=== PATIENT | male | born 1965 | race Caucasian/White ===

== ENCOUNTER 2019-12-14 16:32 | Inpatient (IN) ==
[2019-12-14] MEDS ORDERED: ALBUTEROL/IPRATROPIUM 3 ML NEB RESP TX STA (17:11)
[2019-12-14] MEDS ORDERED: CLINDAMYCIN INJ 900 MG in PREMIX 1 EACH IV STA (17:11)
[2019-12-14] MEDS ORDERED: KETOROLAC 30 MG/1 ML VIAL IV STA (17:11)
[2019-12-14 18:05] LABS: Alanine Aminotransferase 21 U/L (16-61); Alkaline Phosphatase 57 U/L (45-117); Aspartate Amino Transferase 23 U/L (0-37); Bilirubin,Total < 0.39 MG/DL (0.2-1.0); Blood Urea Nitrogen 64 MG/DL (7-18); Calcium 7.7 MG/DL (8.5-10.1); Estimated Glom Filtration Rate 16 ML/MIN; Ferritin 238.2 ng/ml (26-388); Osmolality,Calculated 297.1 MOS/KG (273-304); Total Protein 6.3 G/DL (6.4-8.3)
[2019-12-14 18:08] LABS: Troponin I 0.181 NG/ML (0.00-0.045)
[2019-12-14 18:11] LABS: Glucose 37 MG/DL (74-106)
[2019-12-14] MEDS ORDERED: DEXTROSE 50% 25 GM/50 ML SYRINGE IV ONE ×4 (18:11→20:50)
[2019-12-14 18:12] LABS: INR 1.1; PT Patient Result 11.9 SECS (9.8-11.9); Partial Thromboplastin Time 29.7 SECS (23.9-33.8)
[2019-12-14] MEDS ORDERED: DEXTROSE 50% 25 GM/50 ML VIAL IV STA ×2 (18:12→20:45)
[2019-12-14 18:14] LABS: Basophils # 0.1 10*3/uL (0.0-0.2); Basophils % 0.6 % (0.0-0.8); Eosinophils # 1.2 10*3/uL (0.0-0.87); Eosinophils % 11.8 % (0.00-10.9); Hematocrit 37.1 VOL% (42.0-52.0); Hemoglobin 10.6 GM/DL (14.0-18.0); Immature Granulocytes % 0.3 %; Immature Granulocytes Absolute 0.03 #; Lymphocytes # 0.7 10*3/uL (1.4-4.0); Mean Corpuscular HGB Conc 28.6 GM/DL (32-36); Mean Corpuscular Volume 93.7 FL (87-102); Mean Platelet Volume 11.2 FL (9.6-12.0); Monocytes % 7.4 % (1.7-12.7); Neutrophils % 72.9 % (38.7-73.9); Platelet Count 124 T/CUMM (130-400); Red Blood Count 3.96 MC/CUMM (3.8-5.5); Red Cell Distribution Width 15.8 % (9.3-17.3); White Blood Count 9.8 T/CUMM (4-12)
[2019-12-14 18:37] LABS: Eosinophils 11 % (0-10); Lymphocytes 9 % (20-55); Platelet Estimate Adequate; Segmented Neutrophils 76 % (50-85); Total Cells Counted 100
[2019-12-14 19:09] LABS: Apearance,Urine CLEAR (Clear); Bilirubin,Urine Negative (Negative); Blood, Urine Small mg/dL (Negative); Glucose,Urine (UA) Negative (Negative); Hyaline Casts,Urine 4 /LPF (0-3); Ketones,Urine Negative (Negative); Nitrite,Urine Negative (Negative); Protein,Urine 30 MG/DL; RBC,Urine 3 /HPF (0-4); Urine Color Yellow (Yellow); Urine Specific Gravity 1.011 (1.001-1.035); Urine Urobilinogen < 2.0 EU/DL (0.2-1.0); WBC,Urine 6 /HPF (0-6)
[2019-12-14] MEDS ORDERED: CLINDAMYCIN INJ 600 MG in PREMIX 1 EACH IV STA (19:19)
[2019-12-14] MEDS ORDERED: DEXTROSE 5% NACL 0.45% 1,000 ML IV SCH (19:30)
[2019-12-14] MEDS ORDERED: LACTATED RINGERS 1,000 ML IV ONE (19:40)
[2019-12-14] MEDS ORDERED: hydrALAZINE 20 MG/1 ML VIAL IV PRN (19:56)
[2019-12-14] MEDS ORDERED: GLUCAGON 1 MG VIAL IM PRN ×3 (19:56→20:03)
[2019-12-14] MEDS ORDERED: DEXTROSE 50% 25 GM/50 ML VIAL IV PRN ×3 (19:56→20:03)
[2019-12-15] MEDS: INSULIN REGULAR 100 UNIT/ML SUBCUT SCH ×5 (01:40→21:08)
[2019-12-15] MEDS: CIPROFLOXACIN 0.3% OPH SOLN 2.5 ML BOTTLE LEFT EYE SCH ×6 (02:01→21:16)
[2019-12-15] MEDS: ENOXAPARIN 30 MG/0.3 ML SYRINGE SUBCUT SCH ×2 (02:01→21:09)
[2019-12-15 06:08] LABS: Calcium 7.6 MG/DL (8.5-10.1); Osmolality,Calculated 298.3 MOS/KG (273-304); Risk Ratio 2.39; Thyroid Stimulating Hormone 8.9 uIU/ml (0.358-3.74); VLDL CHOLESTEROL 15.6 MG/DL
[2019-12-15] MEDS: LEVOTHYROXINE 100 MCG TABLET PO SCH (06:08)
[2019-12-15] MEDS ORDERED: LACTATED RINGERS 1,000 ML IV SCH (07:30)
[2019-12-15] MEDS ORDERED: cefTRIAXone 1,000 MG in SYRINGE 1 EACH IV ONE (09:26)
[2019-12-15] MEDS ORDERED: cefTRIAXone 2,000 MG in SYRINGE 1 EACH IV ONE (09:30)
[2019-12-15] MEDS: allopurinoL 300 MG TABLET PO SCH (09:46)
[2019-12-15] MEDS: CALCIUM (CARBONATE)/VITAMIN D 600 MG-400 UNIT TABLET PO SCH (09:46)
[2019-12-15] MEDS: FERROUS SULFATE 325 MG TABLET PO SCH (09:46)
[2019-12-15] MEDS: ASPIRIN EC 81 MG TABLET PO SCH (13:13)
[2019-12-15 13:31] LABS: Troponin I 0.069 NG/ML (0.00-0.045)
[2019-12-15] MEDS: METOPROLOL TARTRATE 50 MG TABLET PO SCH (21:00)
[2019-12-15] MEDS: ATORVASTATIN 40 MG TABLET PO SCH (21:09)
[2019-12-16] MEDS: CIPROFLOXACIN 0.3% OPH SOLN 2.5 ML BOTTLE LEFT EYE SCH ×6 (03:31→21:34)
[2019-12-16] MEDS: LEVOTHYROXINE 100 MCG TABLET PO SCH (05:31)
[2019-12-16 06:16] LABS: Calcium 7.6 MG/DL (8.5-10.1); Osmolality,Calculated 296.5 MOS/KG (273-304)
[2019-12-16 06:24] LABS: Basophils % 0.4 % (0.0-0.8); Eosinophils # 0.8 10*3/uL (0.0-0.87); Eosinophils % 7.9 % (0.00-10.9); Hematocrit 34.6 VOL% (42.0-52.0); Lymphocytes # 0.4 10*3/uL (1.4-4.0); Lymphocytes % 3.7 % (21.2-54.2); Mean Corpuscular Volume 98.3 FL (87-102); Mean Platelet Volume 11.7 FL (9.6-12.0); Monocytes % 6.3 % (1.7-12.7); Neutrophils % 80.7 % (38.7-73.9); Platelet Count 108 T/CUMM (130-400); Red Blood Count 3.52 MC/CUMM (3.8-5.5); Red Cell Distribution Width 15.7 % (9.3-17.3); White Blood Count 9.5 T/CUMM (4-12)
[2019-12-16 06:35] LABS: Troponin I 0.065 NG/ML (0.00-0.045)
[2019-12-16 06:45] LABS: Hemoglobin 9.7 GM/DL (14.0-18.0)
[2019-12-16 06:58] LABS: Anisocytosis 1+; Band Neutrophils 2 % (0-10); Eosinophils 9 % (0-10); Hypochromasia 1+; Lymphocytes 2 % (20-55); Ovalocytes Slight; Segmented Neutrophils 86 % (50-85); Total Cells Counted 100
[2019-12-16 06:59] LABS: Platelet Estimate Decreased
[2019-12-16] MEDS: allopurinoL 300 MG TABLET PO SCH (09:20)
[2019-12-16] MEDS: FERROUS SULFATE 325 MG TABLET PO SCH (09:20)
[2019-12-16] MEDS: ASPIRIN EC 81 MG TABLET PO SCH (09:20)
[2019-12-16] MEDS: METOPROLOL TARTRATE 50 MG TABLET PO SCH ×2 (09:20→21:33)
[2019-12-16] MEDS: CALCIUM (CARBONATE)/VITAMIN D 600 MG-400 UNIT TABLET PO SCH (09:20)
[2019-12-16] MEDS: INSULIN REGULAR 100 UNIT/ML SUBCUT SCH ×4 (09:21→21:32)
[2019-12-16] MEDS: cefTRIAXone 2,000 MG in SYRINGE 1 EACH IV SCH (09:21)
[2019-12-16] MEDS: ATORVASTATIN 40 MG TABLET PO SCH (21:33)
[2019-12-16] MEDS: ENOXAPARIN 30 MG/0.3 ML SYRINGE SUBCUT SCH (21:34)
[2019-12-17] MEDS: CIPROFLOXACIN 0.3% OPH SOLN 2.5 ML BOTTLE LEFT EYE SCH ×6 (02:40→21:04)
[2019-12-17] MEDS: SODIUM CHLORIDE 0.9% 1,000 ML IV SCH ×3 (05:07→17:29)
[2019-12-17] MEDS: LEVOTHYROXINE 100 MCG TABLET PO SCH (06:01)
[2019-12-17 07:28] LABS: Calcium 7.6 MG/DL (8.5-10.1); Osmolality,Calculated 297.7 MOS/KG (273-304)
[2019-12-17 08:05] LABS: Basophils # 0.1 10*3/uL (0.0-0.2); Basophils % 0.5 % (0.0-0.8); Eosinophils # 0.7 10*3/uL (0.0-0.87); Eosinophils % 5.9 % (0.00-10.9); Immature Granulocytes % 0.6 %; Immature Granulocytes Absolute 0.07 #; Lymphocytes # 0.4 10*3/uL (1.4-4.0); Lymphocytes % 3.6 % (21.2-54.2); Mean Corpuscular HGB Conc 27.9 GM/DL (32-36); Mean Corpuscular Volume 96.6 FL (87-102); Monocytes % 4.7 % (1.7-12.7); Neutrophils % 84.7 % (38.7-73.9); Platelet Count 111 T/CUMM (130-400); Red Blood Count 3.52 MC/CUMM (3.8-5.5); Red Cell Distribution Width 15.7 % (9.3-17.3); White Blood Count 11.2 T/CUMM (4-12)
[2019-12-17 08:06] LABS: Hemoglobin 9.5 GM/DL (14.0-18.0)
[2019-12-17 08:12] LABS: Eosinophils 4 % (0-10); Lymphocytes 6 % (20-55); Platelet Estimate Decreased; Polychromasia 1+; Segmented Neutrophils 86 % (50-85); Total Cells Counted 100
[2019-12-17] MEDS: INSULIN REGULAR 100 UNIT/ML SUBCUT SCH ×4 (09:23→21:04)
[2019-12-17] MEDS: METOPROLOL TARTRATE 50 MG TABLET PO SCH ×2 (09:24→21:04)
[2019-12-17] MEDS: allopurinoL 300 MG TABLET PO SCH (09:24)
[2019-12-17] MEDS: CALCIUM (CARBONATE)/VITAMIN D 600 MG-400 UNIT TABLET PO SCH (09:24)
[2019-12-17] MEDS: ASPIRIN EC 81 MG TABLET PO SCH (09:24)
[2019-12-17] MEDS: cefTRIAXone 2,000 MG in SYRINGE 1 EACH IV SCH (09:25)
[2019-12-17] MEDS: FERROUS SULFATE 325 MG TABLET PO SCH (09:25)
[2019-12-17] MEDS: NYSTATIN 500,000 UNIT/5 ML UDCUP SWISH/SWAL SCH ×4 (09:26→21:03)
[2019-12-17] MEDS ORDERED: TUBERCULIN SKIN TEST 0.1 ML SYRINGE INTRADERM ONE (14:19)
[2019-12-17] MEDS: ENOXAPARIN 30 MG/0.3 ML SYRINGE SUBCUT SCH (21:03)
[2019-12-17] MEDS: ATORVASTATIN 40 MG TABLET PO SCH (21:04)
[2019-12-18] MEDS: CIPROFLOXACIN 0.3% OPH SOLN 2.5 ML BOTTLE LEFT EYE SCH ×6 (02:58→21:52)
[2019-12-18] MEDS: SODIUM CHLORIDE 0.9% 1,000 ML IV SCH ×4 (04:00→20:41)
[2019-12-18 05:32] LABS: Calcium 7.5 MG/DL (8.5-10.1); Osmolality,Calculated 302.5 MOS/KG (273-304)
[2019-12-18 05:37] LABS: Basophils % 0.3 % (0.0-0.8); Eosinophils # 0.6 10*3/uL (0.0-0.87); Eosinophils % 6.8 % (0.00-10.9); Immature Granulocytes % 0.6 %; Immature Granulocytes Absolute 0.05 #; Lymphocytes # 0.4 10*3/uL (1.4-4.0); Lymphocytes % 4.6 % (21.2-54.2); Mean Corpuscular HGB Conc 28.7 GM/DL (32-36); Mean Corpuscular Volume 93.8 FL (87-102); Mean Platelet Volume 11.7 FL (9.6-12.0); Monocytes % 5.5 % (1.7-12.7); NRBC # 0.02 10*3/uL; Neutrophils % 82.2 % (38.7-73.9); Platelet Count 110 T/CUMM (130-400); Red Cell Distribution Width 15.9 % (9.3-17.3); White Blood Count 8.9 T/CUMM (4-12)
[2019-12-18 05:40] LABS: Hemoglobin 8.6 GM/DL (14.0-18.0)
[2019-12-18] MEDS: LEVOTHYROXINE 100 MCG TABLET PO SCH (05:48)
[2019-12-18 05:55] LABS: Eosinophils 7 % (0-10); Hypochromasia 1+; Lymphocytes 8 % (20-55); Ovalocytes Slight; Platelet Estimate Decreased; Segmented Neutrophils 80 % (50-85); Total Cells Counted 100
[2019-12-18] MEDS: INSULIN REGULAR 100 UNIT/ML SUBCUT SCH ×4 (09:09→20:33)
[2019-12-18] MEDS: NYSTATIN 500,000 UNIT/5 ML UDCUP SWISH/SWAL SCH ×4 (09:52→20:33)
[2019-12-18] MEDS: ASPIRIN EC 81 MG TABLET PO SCH (09:52)
[2019-12-18] MEDS: CALCIUM (CARBONATE)/VITAMIN D 600 MG-400 UNIT TABLET PO SCH (09:52)
[2019-12-18] MEDS: cefTRIAXone 2,000 MG in SYRINGE 1 EACH IV SCH (09:52)
[2019-12-18] MEDS: FERROUS SULFATE 325 MG TABLET PO SCH (09:52)
[2019-12-18] MEDS: allopurinoL 300 MG TABLET PO SCH (09:52)
[2019-12-18] MEDS: METOPROLOL TARTRATE 50 MG TABLET PO SCH ×2 (09:52→20:33)
[2019-12-18 10:59] LABS: % Iron Saturation 26.9 % (18-50); Ferritin 236.6 ng/ml (26-388)
[2019-12-18] MEDS: ENOXAPARIN 30 MG/0.3 ML SYRINGE SUBCUT SCH (20:32)
[2019-12-18] MEDS: ATORVASTATIN 40 MG TABLET PO SCH (20:33)
[2019-12-18] MEDS: DESITIN 4OZ/NYSTATIN 15 GRAM MIXTURE PASTE TOP SCH (20:34)
[2019-12-18] MEDS: ONDANSETRON 4 MG/2 ML VIAL IV PRN (23:56)
[2019-12-19] MEDS: CIPROFLOXACIN 0.3% OPH SOLN 2.5 ML BOTTLE LEFT EYE SCH ×6 (03:21→21:35)
[2019-12-19] MEDS: LEVOTHYROXINE 100 MCG TABLET PO SCH (05:36)
[2019-12-19 05:58] LABS: Calcium 7.2 MG/DL (8.5-10.1); Osmolality,Calculated 320.1 MOS/KG (273-304)
[2019-12-19 06:06] LABS: Basophils # 0.1 10*3/uL (0.0-0.2); Basophils % 0.6 % (0.0-0.8); Eosinophils # 0.7 10*3/uL (0.0-0.87); Eosinophils % 7.9 % (0.00-10.9); Hematocrit 24.1 VOL% (42.0-52.0); Hemoglobin 6.9 GM/DL (14.0-18.0); Immature Granulocytes % 1.2 %; Immature Granulocytes Absolute 0.11 #; Lymphocytes # 0.7 10*3/uL (1.4-4.0); Lymphocytes % 7.4 % (21.2-54.2); Mean Corpuscular HGB Conc 28.6 GM/DL (32-36); Mean Corpuscular Volume 95.6 FL (87-102); Mean Platelet Volume 11.4 FL (9.6-12.0); Monocytes % 8.1 % (1.7-12.7); Neutrophils % 74.8 % (38.7-73.9); Platelet Count 104 T/CUMM (130-400); Red Blood Count 2.52 MC/CUMM (3.8-5.5); Red Cell Distribution Width 15.9 % (9.3-17.3); White Blood Count 9.4 T/CUMM (4-12)
[2019-12-19 06:09] LABS: Hypochromasia 1+; Ovalocytes Slight; Platelet Estimate Decreased
[2019-12-19] MEDS ORDERED: IRON SUCROSE 300 MG in SODIUM CHLORIDE 0.9% 100 ML IV ONE (06:33)
[2019-12-19] MEDS ORDERED: EPOETIN ALFA 2,000 UNIT/1 ML VIAL SUBCUT ONE (06:35)
[2019-12-19] MEDS: INSULIN REGULAR 100 UNIT/ML SUBCUT SCH ×4 (07:56→21:34)
[2019-12-19] MEDS: DESITIN 4OZ/NYSTATIN 15 GRAM MIXTURE PASTE TOP SCH ×2 (09:15→21:34)
[2019-12-19] MEDS: cefTRIAXone 2,000 MG in SYRINGE 1 EACH IV SCH (09:15)
[2019-12-19] MEDS: METOPROLOL TARTRATE 50 MG TABLET PO SCH ×2 (09:16→21:30)
[2019-12-19] MEDS: NYSTATIN 500,000 UNIT/5 ML UDCUP SWISH/SWAL SCH ×4 (09:16→21:29)
[2019-12-19] MEDS: FERROUS SULFATE 325 MG TABLET PO SCH ×3 (09:16→21:31)
[2019-12-19] MEDS: CALCIUM (CARBONATE)/VITAMIN D 600 MG-400 UNIT TABLET PO SCH (09:16)
[2019-12-19] MEDS: allopurinoL 300 MG TABLET PO SCH (09:16)
[2019-12-19] MEDS ORDERED: SODIUM CHLORIDE 0.9% 1,000 ML IV PRN (10:13)
[2019-12-19] MEDS: PANTOPRAZOLE 40 MG TABLET PO SCH (11:17)
[2019-12-19] MEDS: SODIUM CHLORIDE 23.4% CONC INJ 38.5 MEQ in STERILE WATER INJ 1,000 ML IV SCH (11:47)
[2019-12-19] MEDS ORDERED: FUROSEMIDE 40 MG/4 ML VIAL IV ONE (12:54)
[2019-12-19] MEDS: ATORVASTATIN 40 MG TABLET PO SCH (21:30)
[2019-12-20] MEDS: CIPROFLOXACIN 0.3% OPH SOLN 2.5 ML BOTTLE LEFT EYE SCH ×6 (03:05→22:33)
[2019-12-20] MEDS: SODIUM CHLORIDE 23.4% CONC INJ 38.5 MEQ in STERILE WATER INJ 1,000 ML IV SCH ×2 (05:11→13:28)
[2019-12-20] MEDS: LEVOTHYROXINE 100 MCG TABLET PO SCH (05:50)
[2019-12-20 07:34] LABS: Basophils # 0.1 10*3/uL (0.0-0.2); Basophils % 0.7 % (0.0-0.8); Eosinophils # 0.8 10*3/uL (0.0-0.87); Eosinophils % 7.3 % (0.00-10.9); Hematocrit 23.3 VOL% (42.0-52.0); Hemoglobin 6.7 GM/DL (14.0-18.0); Immature Granulocytes % 1.4 %; Immature Granulocytes Absolute 0.15 #; Lymphocytes # 0.5 10*3/uL (1.4-4.0); Lymphocytes % 4.9 % (21.2-54.2); Mean Corpuscular HGB Conc 28.8 GM/DL (32-36); Mean Corpuscular Volume 97.1 FL (87-102); Mean Platelet Volume 10.2 FL (9.6-12.0); Monocytes % 6.8 % (1.7-12.7); NRBC # 0.02 10*3/uL; Neutrophils % 78.9 % (38.7-73.9); Platelet Count 115 T/CUMM (130-400); Red Cell Distribution Width 16.1 % (9.3-17.3)
[2019-12-20] MEDS ORDERED: SODIUM CHLORIDE 0.9% 1,000 ML IV PRN (07:50)
[2019-12-20 07:55] LABS: Alanine Aminotransferase 14 U/L (16-61); Alkaline Phosphatase 44 U/L (45-117); Aspartate Amino Transferase 20 U/L (0-37); Bilirubin,Total < 0.39 MG/DL (0.2-1.0); Blood Urea Nitrogen 135 MG/DL (7-18); Calcium 7.6 MG/DL (8.5-10.1); Estimated Glom Filtration Rate 15 ML/MIN; Glucose 119 MG/DL (74-106); Total Protein 4.9 G/DL (6.4-8.3)
[2019-12-20 07:56] LABS: Band Neutrophils 2 % (0-10); Eosinophils 10 % (0-10); Lymphocytes 5 % (20-55); Segmented Neutrophils 77 % (50-85); Total Cells Counted 100
[2019-12-20 07:57] LABS: Anisocytosis 1+; Basophilic Stippling 1+; Platelet Estimate Adequate; Poikilocytosis Slight; Tear Drop Cells Few
[2019-12-20] MEDS: INSULIN REGULAR 100 UNIT/ML SUBCUT SCH ×4 (07:57→22:33)
[2019-12-20] MEDS ORDERED: HEPARIN 5,000 UNIT/1 ML VIAL ONE (08:11)
[2019-12-20] MEDS ORDERED: BUPIVACAINE 0.25% /EPI 10 ML VIAL ONE (08:11)
[2019-12-20] MEDS ORDERED: LIDOCAINE 1%/EPI INJ 20 ML VIAL ONE (08:12)
[2019-12-20] MEDS: CALCIUM (CARBONATE)/VITAMIN D 600 MG-400 UNIT TABLET PO SCH (08:22)
[2019-12-20] MEDS: FERROUS SULFATE 325 MG TABLET PO SCH ×3 (08:22→22:33)
[2019-12-20] MEDS: PANTOPRAZOLE 40 MG TABLET PO SCH (08:23)
[2019-12-20] MEDS: DESITIN 4OZ/NYSTATIN 15 GRAM MIXTURE PASTE TOP SCH ×2 (08:23→22:34)
[2019-12-20] MEDS: NYSTATIN 500,000 UNIT/5 ML UDCUP SWISH/SWAL SCH ×4 (08:23→22:32)
[2019-12-20] MEDS: METOPROLOL TARTRATE 50 MG TABLET PO SCH ×2 (08:23→22:33)
[2019-12-20] MEDS: allopurinoL 300 MG TABLET PO SCH (08:23)
[2019-12-20 08:50] LABS: Hepatitis B Core IgM Quant 0.15 Index; Hepatitis B Surface Ag Quant < 0.10 Index; Hepatitis B Surface Ag Result Negative (Negative); Hepatitis C Virus Ab Quant 0.02 Index; Hepatitis C Virus Ab Result Negative (Negative)
[2019-12-20] MEDS ORDERED: LIDOCAINE 2% 5 ML VIAL ONE (09:36)
[2019-12-20] MEDS ORDERED: propofoL 200 MG/20 ML VIAL IV ONE (09:36)
[2019-12-20] MEDS ORDERED: fentaNYL 100 MCG/2 ML VIAL ONE (09:36)
[2019-12-20] MEDS ORDERED: HEPARIN 10,000 UNIT/10 ML VIAL IV SCH (12:30)
[2019-12-20] MEDS: cefTRIAXone 2,000 MG in SYRINGE 1 EACH IV SCH (14:39)
[2019-12-20] MEDS: ATORVASTATIN 40 MG TABLET PO SCH (22:33)
[2019-12-21] MEDS: CIPROFLOXACIN 0.3% OPH SOLN 2.5 ML BOTTLE LEFT EYE SCH ×4 (01:48→14:28)
[2019-12-21 06:41] LABS: Albumin 1.7 G/DL (3.4-5.0); Bilirubin,Total 1.3 MG/DL (0.2-1.0); Calcium 7.5 MG/DL (8.5-10.1); Osmolality,Calculated 328.6 MOS/KG (273-304)
[2019-12-21 08:30] LABS: Basophils % 0.3 % (0.0-0.8); Eosinophils # 0.7 10*3/uL (0.0-0.87); Eosinophils % 7.6 % (0.00-10.9); Immature Granulocytes % 1.6 %; Immature Granulocytes Absolute 0.14 #; Lymphocytes # 0.6 10*3/uL (1.4-4.0); Lymphocytes % 7.3 % (21.2-54.2); Mean Corpuscular HGB Conc 30.6 GM/DL (32-36); Mean Corpuscular Volume 93.9 FL (87-102); Mean Platelet Volume 11.7 FL (9.6-12.0); Monocytes % 9.4 % (1.7-12.7); NRBC # 0.02 10*3/uL; Neutrophils % 73.8 % (38.7-73.9); Red Blood Count 1.81 MC/CUMM (3.8-5.5); Red Cell Distribution Width 16.2 % (9.3-17.3); White Blood Count 8.8 T/CUMM (4-12)
[2019-12-21 08:38] LABS: Hemoglobin 5.2 GM/DL (14.0-18.0); Platelet Count 94 T/CUMM (130-400)
[2019-12-21 08:49] LABS: Hypochromasia 2+; Microcytosis 1+; Platelet Estimate Decreased
[2019-12-21] MEDS: PANTOPRAZOLE 40 MG TABLET PO SCH (09:00)
[2019-12-21] MEDS ORDERED: propofoL 200 MG/20 ML VIAL IV ONE (09:00)
[2019-12-21] MEDS: CALCIUM (CARBONATE)/VITAMIN D 600 MG-400 UNIT TABLET PO SCH (09:10)
[2019-12-21] MEDS: LEVOTHYROXINE 100 MCG TABLET PO SCH (09:10)
[2019-12-21] MEDS: allopurinoL 300 MG TABLET PO SCH (09:10)
[2019-12-21] MEDS: METOPROLOL TARTRATE 50 MG TABLET PO SCH (09:10)
[2019-12-21] MEDS ORDERED: SODIUM CHLORIDE 0.9% 1,000 ML IV PRN (09:35)
[2019-12-21] MEDS: NYSTATIN 500,000 UNIT/5 ML UDCUP SWISH/SWAL SCH ×3 (09:48→17:41)
[2019-12-21] MEDS: cefTRIAXone 2,000 MG in SYRINGE 1 EACH IV SCH (09:49)
[2019-12-21] MEDS: INSULIN REGULAR 100 UNIT/ML SUBCUT SCH ×3 (10:30→17:40)
[2019-12-21 10:35] LABS: Hematocrit 18.6 VOL% (42.0-52.0)
[2019-12-21 10:37] LABS: Hemoglobin 5.5 GM/DL (14.0-18.0)
[2019-12-21] MEDS: DESITIN 4OZ/NYSTATIN 15 GRAM MIXTURE PASTE TOP SCH ×2 (11:15→22:30)
[2019-12-21] MEDS ORDERED: EPINEPHrine 1 MG/ML VIAL ONE (11:51)
[2019-12-21] MEDS: ONDANSETRON 4 MG/2 ML VIAL IV PRN (13:41)
[2019-12-21] MEDS: FERROUS SULFATE 325 MG TABLET PO SCH ×2 (14:07→16:02)
[2019-12-21 18:05] LABS: Hematocrit 24.8 VOL% (42.0-52.0)
[2019-12-21 18:07] LABS: Hemoglobin 7.6 GM/DL (14.0-18.0)
[2019-12-21] MEDS: PANTOPRAZOLE 40 MG VIAL IV SCH (22:32)
[2019-12-22] MEDS: CIPROFLOXACIN 0.3% OPH SOLN 2.5 ML BOTTLE LEFT EYE SCH ×7 (01:02→21:15)
[2019-12-22] MEDS: FERROUS SULFATE 325 MG TABLET PO SCH ×4 (01:04→21:15)
[2019-12-22] MEDS: ATORVASTATIN 40 MG TABLET PO SCH ×2 (01:05→21:15)
[2019-12-22] MEDS: METOPROLOL TARTRATE 50 MG TABLET PO SCH ×3 (01:05→21:15)
[2019-12-22] MEDS: NYSTATIN 500,000 UNIT/5 ML UDCUP SWISH/SWAL SCH ×5 (01:06→21:15)
[2019-12-22] MEDS: INSULIN REGULAR 100 UNIT/ML SUBCUT SCH ×5 (01:08→20:37)
[2019-12-22 04:08] LABS: Basophils # 0.1 10*3/uL (0.0-0.2); Basophils % 0.7 % (0.0-0.8); Eosinophils # 0.7 10*3/uL (0.0-0.87); Eosinophils % 6.7 % (0.00-10.9); Hematocrit 18.6 VOL% (42.0-52.0); Immature Granulocytes % 3.4 %; Immature Granulocytes Absolute 0.36 #; Lymphocytes # 0.7 10*3/uL (1.4-4.0); Lymphocytes % 6.4 % (21.2-54.2); Mean Corpuscular HGB Conc 30.1 GM/DL (32-36); Mean Corpuscular Volume 93.5 FL (87-102); Mean Platelet Volume 11.4 FL (9.6-12.0); NRBC # 0.11 10*3/uL; Neutrophils % 73.8 % (38.7-73.9); Platelet Count 87 T/CUMM (130-400); Red Blood Count 1.99 MC/CUMM (3.8-5.5); Red Cell Distribution Width 16.8 % (9.3-17.3); White Blood Count 10.7 T/CUMM (4-12)
[2019-12-22 04:15] LABS: Alanine Aminotransferase 11 U/L (16-61); Albumin 1.7 G/DL (3.4-5.0); Alkaline Phosphatase 30 U/L (45-117); Aspartate Amino Transferase 17 U/L (0-37); Bilirubin,Total < 0.39 MG/DL (0.2-1.0); Blood Urea Nitrogen 101 MG/DL (7-18); Calcium 7.4 MG/DL (8.5-10.1); Estimated Glom Filtration Rate 25 ML/MIN; Glucose 116 MG/DL (74-106); Osmolality,Calculated 318.8 MOS/KG (273-304); Total Protein 3.8 G/DL (6.4-8.3)
[2019-12-22 04:17] LABS: Hemoglobin 5.6 GM/DL (14.0-18.0)
[2019-12-22] MEDS ORDERED: SODIUM CHLORIDE 0.9% 1,000 ML IV PRN ×3 (05:08→23:46)
[2019-12-22] MEDS: LEVOTHYROXINE 100 MCG TABLET PO SCH (07:03)
[2019-12-22] MEDS ORDERED: CALCIUM GLUCONATE 1,000 MG in SODIUM CHLORIDE 0.9% 100 ML IV ONE (08:17)
[2019-12-22 08:55] LABS: Band Neutrophils 1 % (0-10); Eosinophils 2 % (0-10); Hypochromasia 2+; Lymphocytes 5 % (20-55); Nucleated Red Blood Cells 1 (0-5); Polychromasia Slight; Segmented Neutrophils 80 % (50-85); Stomatocytes Few; Total Cells Counted 100
[2019-12-22 08:56] LABS: Platelet Estimate Decreased
[2019-12-22] MEDS: DESITIN 4OZ/NYSTATIN 15 GRAM MIXTURE PASTE TOP SCH ×2 (09:44→21:15)
[2019-12-22] MEDS: PANTOPRAZOLE 40 MG VIAL IV SCH ×2 (10:59→21:15)
[2019-12-22] MEDS: cefTRIAXone 2,000 MG in SYRINGE 1 EACH IV SCH (10:59)
[2019-12-22] MEDS: allopurinoL 300 MG TABLET PO SCH (13:49)
[2019-12-22] MEDS: CALCIUM (CARBONATE)/VITAMIN D 600 MG-400 UNIT TABLET PO SCH (13:50)
[2019-12-22] MEDS: ACETAMINOPHEN 500 MG TABLET PO PRN (16:43)
[2019-12-22 17:49] LABS: Hemoglobin 6.2 GM/DL (14.0-18.0)
[2019-12-22 22:25] LABS: Hematocrit 20.4 VOL% (42.0-52.0)
[2019-12-22 23:31] LABS: Hemoglobin 6.4 GM/DL (14.0-18.0)
[2019-12-23] MEDS: CIPROFLOXACIN 0.3% OPH SOLN 2.5 ML BOTTLE LEFT EYE SCH ×6 (02:15→21:23)
[2019-12-23] MEDS: ONDANSETRON 4 MG/2 ML VIAL IV PRN (04:25)
[2019-12-23] MEDS: LEVOTHYROXINE 100 MCG TABLET PO SCH (06:45)
[2019-12-23] MEDS: INSULIN REGULAR 100 UNIT/ML SUBCUT SCH ×4 (08:24→20:21)
[2019-12-23] MEDS: NYSTATIN 500,000 UNIT/5 ML UDCUP SWISH/SWAL SCH ×4 (08:55→21:22)
[2019-12-23] MEDS: CALCIUM (CARBONATE)/VITAMIN D 600 MG-400 UNIT TABLET PO SCH (08:56)
[2019-12-23] MEDS: allopurinoL 300 MG TABLET PO SCH (08:56)
[2019-12-23] MEDS: FERROUS SULFATE 325 MG TABLET PO SCH ×3 (08:57→21:21)
[2019-12-23] MEDS: METOPROLOL TARTRATE 50 MG TABLET PO SCH (08:57)
[2019-12-23] MEDS: PANTOPRAZOLE 40 MG VIAL IV SCH ×2 (09:07→21:23)
[2019-12-23] MEDS: DESITIN 4OZ/NYSTATIN 15 GRAM MIXTURE PASTE TOP SCH ×2 (09:08→21:22)
[2019-12-23] MEDS: cefTRIAXone 2,000 MG in SYRINGE 1 EACH IV SCH (09:25)
[2019-12-23 09:33] LABS: Basophils # 0.1 10*3/uL (0.0-0.2); Basophils % 0.5 % (0.0-0.8); Eosinophils # 0.7 10*3/uL (0.0-0.87); Eosinophils % 5.1 % (0.00-10.9); Hematocrit 26.7 VOL% (42.0-52.0); Hemoglobin 8.4 GM/DL (14.0-18.0); Immature Granulocytes % 4.2 %; Immature Granulocytes Absolute 0.53 #; Lymphocytes # 0.6 10*3/uL (1.4-4.0); Lymphocytes % 5.1 % (21.2-54.2); Mean Corpuscular HGB Conc 31.5 GM/DL (32-36); Mean Corpuscular Volume 91.1 FL (87-102); Mean Platelet Volume 10.6 FL (9.6-12.0); Monocytes % 6.3 % (1.7-12.7); NRBC # 0.06 10*3/uL; Neutrophils % 78.8 % (38.7-73.9); Platelet Count 91 T/CUMM (130-400); Red Blood Count 2.93 MC/CUMM (3.8-5.5); Red Cell Distribution Width 15.9 % (9.3-17.3); White Blood Count 12.6 T/CUMM (4-12)
[2019-12-23 09:56] LABS: Bilirubin,Total 1.4 MG/DL (0.2-1.0); Calcium 7.4 MG/DL (8.5-10.1); Total Protein 4.4 G/DL (6.4-8.3)
[2019-12-23] MEDS ORDERED: MAGNESIUM SULF RIDER 2 GM in PREMIX 1 EACH IV ONE (10:28)
[2019-12-23] MEDS ORDERED: MAGNESIUM SULF RIDER 4 GM in PREMIX 1 EACH IV ONE (10:29)
[2019-12-23 10:47] LABS: Ovalocytes Slight; Polychromasia Few
[2019-12-23 10:48] LABS: Hypochromasia 1+; Platelet Estimate Adequate; Tear Drop Cells Slight
[2019-12-23] MEDS ORDERED: MAGNESIUM SULF RIDER 2 GM in PREMIX 1 EACH IV PRN (10:50)
[2019-12-23] MEDS ORDERED: MAGNESIUM SULF RIDER 4 GM in PREMIX 1 EACH IV PRN (11:00)
[2019-12-23] MEDS: ATORVASTATIN 40 MG TABLET PO SCH (21:21)
[2019-12-23] MEDS: METOPROLOL TARTRATE 25 MG TABLET PO SCH (21:39)
[2019-12-24] MEDS: CIPROFLOXACIN 0.3% OPH SOLN 2.5 ML BOTTLE LEFT EYE SCH ×6 (02:49→21:19)
[2019-12-24 05:34] LABS: Basophils # 0.1 10*3/uL (0.0-0.2); Basophils % 0.6 % (0.0-0.8); Eosinophils # 0.7 10*3/uL (0.0-0.87); Eosinophils % 6.7 % (0.00-10.9); Hematocrit 24.6 VOL% (42.0-52.0); Hemoglobin 7.5 GM/DL (14.0-18.0); Immature Granulocytes % 4.3 %; Immature Granulocytes Absolute 0.42 #; Lymphocytes # 0.6 10*3/uL (1.4-4.0); Mean Corpuscular HGB Conc 30.5 GM/DL (32-36); Mean Corpuscular Volume 93.9 FL (87-102); Mean Platelet Volume 10.7 FL (9.6-12.0); Monocytes % 6.7 % (1.7-12.7); NRBC # 0.05 10*3/uL; Neutrophils % 75.7 % (38.7-73.9); Platelet Count 83 T/CUMM (130-400); Red Blood Count 2.62 MC/CUMM (3.8-5.5); White Blood Count 9.8 T/CUMM (4-12)
[2019-12-24 05:59] LABS: Alanine Aminotransferase 15 U/L (16-61); Albumin 1.9 G/DL (3.4-5.0); Alkaline Phosphatase 37 U/L (45-117); Aspartate Amino Transferase 18 U/L (0-37); Bilirubin,Total < 0.39 MG/DL (0.2-1.0); Blood Urea Nitrogen 68 MG/DL (7-18); Calcium 7.8 MG/DL (8.5-10.1); Estimated Glom Filtration Rate 26 ML/MIN; Glucose 87 MG/DL (74-106); Osmolality,Calculated 299.3 MOS/KG (273-304); Total Protein 4.2 G/DL (6.4-8.3)
[2019-12-24 06:06] LABS: Eosinophils 6 % (0-10); Hypochromasia 1+; Lymphocytes 5 % (20-55); Microcytosis 1+; Platelet Estimate Decreased; Segmented Neutrophils 85 % (50-85); Total Cells Counted 100
[2019-12-24] MEDS: LEVOTHYROXINE 100 MCG TABLET PO SCH (06:14)
[2019-12-24] MEDS: INSULIN REGULAR 100 UNIT/ML SUBCUT SCH ×3 (09:14→17:27)
[2019-12-24] MEDS ORDERED: ALBUMIN 25% 25 GM in PREMIX 1 EACH IV ONE (09:27)
[2019-12-24] MEDS: CALCIUM (CARBONATE)/VITAMIN D 600 MG-400 UNIT TABLET PO SCH (10:34)
[2019-12-24] MEDS: METOPROLOL TARTRATE 25 MG TABLET PO SCH ×2 (10:35→21:10)
[2019-12-24] MEDS: FERROUS SULFATE 325 MG TABLET PO SCH ×3 (10:35→21:09)
[2019-12-24] MEDS: allopurinoL 300 MG TABLET PO SCH (10:36)
[2019-12-24] MEDS: NYSTATIN 500,000 UNIT/5 ML UDCUP SWISH/SWAL SCH ×4 (10:36→21:10)
[2019-12-24] MEDS: PANTOPRAZOLE 40 MG VIAL IV SCH ×2 (10:55→21:11)
[2019-12-24] MEDS: DESITIN 4OZ/NYSTATIN 15 GRAM MIXTURE PASTE TOP SCH ×2 (11:02→21:19)
[2019-12-24] MEDS: ACETAMINOPHEN 500 MG TABLET PO PRN (21:09)
[2019-12-24] MEDS: ATORVASTATIN 40 MG TABLET PO SCH (21:10)
[2019-12-25] MEDS: INSULIN REGULAR 100 UNIT/ML SUBCUT SCH ×5 (00:36→20:20)
[2019-12-25] MEDS: CIPROFLOXACIN 0.3% OPH SOLN 2.5 ML BOTTLE LEFT EYE SCH ×6 (02:13→21:53)
[2019-12-25] MEDS: LEVOTHYROXINE 100 MCG TABLET PO SCH (05:47)
[2019-12-25 07:00] LABS: Basophils # 0.1 10*3/uL (0.0-0.2); Basophils % 0.5 % (0.0-0.8); Eosinophils # 0.6 10*3/uL (0.0-0.87); Eosinophils % 6.9 % (0.00-10.9); Hematocrit 25.9 VOL% (42.0-52.0); Hemoglobin 7.7 GM/DL (14.0-18.0); Immature Granulocytes % 3.8 %; Immature Granulocytes Absolute 0.35 #; Lymphocytes # 0.6 10*3/uL (1.4-4.0); Lymphocytes % 6.6 % (21.2-54.2); Mean Corpuscular HGB Conc 29.7 GM/DL (32-36); Mean Corpuscular Volume 95.6 FL (87-102); Mean Platelet Volume 10.8 FL (9.6-12.0); Monocytes % 7.7 % (1.7-12.7); NRBC # 0.04 10*3/uL; Neutrophils % 74.5 % (38.7-73.9); Platelet Count 90 T/CUMM (130-400); Red Blood Count 2.71 MC/CUMM (3.8-5.5); Red Cell Distribution Width 15.6 % (9.3-17.3); White Blood Count 9.1 T/CUMM (4-12)
[2019-12-25 07:27] LABS: Hypochromasia 1+; Microcytosis 1+; Platelet Estimate Decreased
[2019-12-25 07:28] LABS: Anisocytosis 1+; Basophilic Stippling Slight; Ovalocytes Slight; Polychromasia Slight
[2019-12-25 07:31] LABS: Albumin 2.3 G/DL (3.4-5.0); Bilirubin,Total 1.4 MG/DL (0.2-1.0); Calcium 7.8 MG/DL (8.5-10.1); Osmolality,Calculated 285.4 MOS/KG (273-304); Total Protein 4.7 G/DL (6.4-8.3)
[2019-12-25] MEDS: CALCIUM (CARBONATE)/VITAMIN D 600 MG-400 UNIT TABLET PO SCH (09:52)
[2019-12-25] MEDS: allopurinoL 300 MG TABLET PO SCH (09:53)
[2019-12-25] MEDS: METOPROLOL TARTRATE 25 MG TABLET PO SCH ×2 (09:53→20:21)
[2019-12-25] MEDS: FERROUS SULFATE 325 MG TABLET PO SCH ×3 (09:53→20:52)
[2019-12-25] MEDS: NYSTATIN 500,000 UNIT/5 ML UDCUP SWISH/SWAL SCH ×4 (09:53→20:52)
[2019-12-25] MEDS: DESITIN 4OZ/NYSTATIN 15 GRAM MIXTURE PASTE TOP SCH ×2 (09:54→21:53)
[2019-12-25] MEDS: PANTOPRAZOLE 40 MG VIAL IV SCH ×2 (09:54→20:52)
[2019-12-25] MEDS: ACETAMINOPHEN 500 MG TABLET PO PRN ×2 (11:28→18:45)
[2019-12-25] MEDS: ATORVASTATIN 40 MG TABLET PO SCH (20:52)
[2019-12-26] MEDS: CIPROFLOXACIN 0.3% OPH SOLN 2.5 ML BOTTLE LEFT EYE SCH ×6 (03:34→22:22)
[2019-12-26] MEDS: LEVOTHYROXINE 100 MCG TABLET PO SCH (05:57)
[2019-12-26] MEDS: INSULIN REGULAR 100 UNIT/ML SUBCUT SCH ×4 (08:03→20:38)
[2019-12-26 08:12] LABS: Basophils # 0.1 10*3/uL (0.0-0.2); Basophils % 0.6 % (0.0-0.8); Eosinophils # 0.6 10*3/uL (0.0-0.87); Eosinophils % 7.5 % (0.00-10.9); Hematocrit 25.1 VOL% (42.0-52.0); Hemoglobin 7.8 GM/DL (14.0-18.0); Immature Granulocytes % 4.9 %; Immature Granulocytes Absolute 0.41 #; Lymphocytes # 0.5 10*3/uL (1.4-4.0); Lymphocytes % 5.7 % (21.2-54.2); Mean Corpuscular HGB Conc 31.1 GM/DL (32-36); Mean Corpuscular Volume 92.3 FL (87-102); Mean Platelet Volume 10.4 FL (9.6-12.0); Monocytes % 8.3 % (1.7-12.7); NRBC # 0.02 10*3/uL; Platelet Count 106 T/CUMM (130-400); Red Blood Count 2.72 MC/CUMM (3.8-5.5); Red Cell Distribution Width 15.5 % (9.3-17.3); White Blood Count 8.4 T/CUMM (4-12)
[2019-12-26] MEDS: allopurinoL 300 MG TABLET PO SCH (08:51)
[2019-12-26] MEDS: PANTOPRAZOLE 40 MG VIAL IV SCH ×2 (08:51→20:37)
[2019-12-26] MEDS: FERROUS SULFATE 325 MG TABLET PO SCH ×3 (08:51→20:37)
[2019-12-26] MEDS: NYSTATIN 500,000 UNIT/5 ML UDCUP SWISH/SWAL SCH ×4 (08:51→20:38)
[2019-12-26] MEDS: METOPROLOL TARTRATE 25 MG TABLET PO SCH ×2 (08:51→20:38)
[2019-12-26] MEDS: CALCIUM (CARBONATE)/VITAMIN D 600 MG-400 UNIT TABLET PO SCH (08:54)
[2019-12-26] MEDS: DESITIN 4OZ/NYSTATIN 15 GRAM MIXTURE PASTE TOP SCH ×2 (08:54→22:24)
[2019-12-26] MEDS: ATORVASTATIN 40 MG TABLET PO SCH (20:38)
[2019-12-27] MEDS: CIPROFLOXACIN 0.3% OPH SOLN 2.5 ML BOTTLE LEFT EYE SCH ×6 (02:28→21:27)
[2019-12-27 05:17] LABS: Calcium 8.1 MG/DL (8.5-10.1); Osmolality,Calculated 277.8 MOS/KG (273-304)
[2019-12-27] MEDS: LEVOTHYROXINE 100 MCG TABLET PO SCH (06:10)
[2019-12-27] MEDS: INSULIN REGULAR 100 UNIT/ML SUBCUT SCH ×4 (07:45→20:22)
[2019-12-27] MEDS: CALCIUM (CARBONATE)/VITAMIN D 600 MG-400 UNIT TABLET PO SCH (09:19)
[2019-12-27] MEDS: NYSTATIN 500,000 UNIT/5 ML UDCUP SWISH/SWAL SCH ×4 (09:19→20:23)
[2019-12-27] MEDS: METOPROLOL TARTRATE 25 MG TABLET PO SCH ×2 (09:19→20:23)
[2019-12-27] MEDS: FERROUS SULFATE 325 MG TABLET PO SCH ×3 (09:19→20:23)
[2019-12-27] MEDS: allopurinoL 300 MG TABLET PO SCH (09:20)
[2019-12-27] MEDS: PANTOPRAZOLE 40 MG VIAL IV SCH ×2 (09:20→20:22)
[2019-12-27] MEDS: DESITIN 4OZ/NYSTATIN 15 GRAM MIXTURE PASTE TOP SCH ×2 (09:52→20:23)
[2019-12-27] MEDS: ATORVASTATIN 40 MG TABLET PO SCH (20:23)
[2019-12-28] MEDS: CIPROFLOXACIN 0.3% OPH SOLN 2.5 ML BOTTLE LEFT EYE SCH ×3 (02:33→11:02)
[2019-12-28] MEDS: LEVOTHYROXINE 100 MCG TABLET PO SCH (05:41)
[2019-12-28 06:13] LABS: Basophils % 0.5 % (0.0-0.8); Eosinophils # 0.5 10*3/uL (0.0-0.87); Eosinophils % 8.4 % (0.00-10.9); Hematocrit 26.3 VOL% (42.0-52.0); Immature Granulocytes % 2.5 %; Immature Granulocytes Absolute 0.15 #; Lymphocytes # 0.4 10*3/uL (1.4-4.0); Lymphocytes % 7.2 % (21.2-54.2); Mean Corpuscular HGB Conc 30.4 GM/DL (32-36); Mean Corpuscular Volume 90.7 FL (87-102); Mean Platelet Volume 9.9 FL (9.6-12.0); Monocytes % 12.4 % (1.7-12.7); Platelet Count 120 T/CUMM (130-400); Red Cell Distribution Width 15.3 % (9.3-17.3)
[2019-12-28 06:26] LABS: Calcium 7.8 MG/DL (8.5-10.1); Osmolality,Calculated 282.5 MOS/KG (273-304)
[2019-12-28] MEDS: INSULIN REGULAR 100 UNIT/ML SUBCUT SCH ×2 (07:30→11:32)
[2019-12-28] MEDS: PANTOPRAZOLE 40 MG VIAL IV SCH (10:25)
[2019-12-28] MEDS: allopurinoL 300 MG TABLET PO SCH (11:00)
[2019-12-28] MEDS: CALCIUM (CARBONATE)/VITAMIN D 600 MG-400 UNIT TABLET PO SCH (11:00)
[2019-12-28] MEDS: METOPROLOL TARTRATE 25 MG TABLET PO SCH (11:01)
[2019-12-28] MEDS: DESITIN 4OZ/NYSTATIN 15 GRAM MIXTURE PASTE TOP SCH (11:01)
[2019-12-28] MEDS: NYSTATIN 500,000 UNIT/5 ML UDCUP SWISH/SWAL SCH ×2 (11:01→13:27)
[2019-12-28] MEDS: FERROUS SULFATE 325 MG TABLET PO SCH (11:01)
[2019-12-28 13:52] VITALS: BP 143/90
[2019-12-28] MEDS ORDERED: PANTOPRAZOLE 40 MG TABLET PO SCH (21:00)
== END 2019-12-28 14:00 | disposition swing bed (61) | DRG 673 ==
LOC: EDUNIT# → EDBD → N.ED 16:32 → SUATTDRO 19:56 → N.EDINP 19:56 → N.TELES 21:13 → N.ICU 12-21 17:29 → N.TELEN 12-24 18:42
PROVIDERS: ADMIT Internal Medicine; ATTEND Hospitalist

== ENCOUNTER 2020-01-29 18:13 | Inpatient (IN) ==
[2020-01-29] MEDS ORDERED: CEFEPIME 1,000 MG in SODIUM CHLORIDE 0.9% 100 ML IV STA (18:43)
[2020-01-29 19:32] LABS: Basophils % 0.3 % (0.0-0.8); Eosinophils # 0.3 10*3/uL (0.0-0.87); Eosinophils % 3.3 % (0.00-10.9); Hematocrit 25.5 VOL% (42.0-52.0); Hemoglobin 7.7 GM/DL (14.0-18.0); Immature Granulocytes % 2.9 %; Immature Granulocytes Absolute 0.22 #; Lymphocytes # 0.6 10*3/uL (1.4-4.0); Lymphocytes % 7.3 % (21.2-54.2); Mean Corpuscular HGB Conc 30.2 GM/DL (32-36); Mean Platelet Volume 9.8 FL (9.6-12.0); Neutrophils % 80.2 % (38.7-73.9); Platelet Count 155 T/CUMM (130-400); Red Blood Count 2.93 MC/CUMM (3.8-5.5); Red Cell Distribution Width 15.5 % (9.3-17.3); White Blood Count 7.6 T/CUMM (4-12)
[2020-01-29 20:04] LABS: Albumin 2.6 G/DL (3.4-5.0); Bilirubin,Total 0.5 MG/DL (0.2-1.0); Calcium 8.7 MG/DL (8.5-10.1); Total Protein 6.4 G/DL (6.4-8.3)
[2020-01-29 20:40] LABS: Sedimentation Rate-Westergren 117 MM/HR (0-20)
[2020-01-29] MEDS ORDERED: VANCOMYCIN INJ 1,000 MG in SODIUM CHLORIDE 0.9% 250 ML IV ONE (21:34)
[2020-01-29] MEDS ORDERED: GLUCAGON 1 MG VIAL IM PRN (22:06)
[2020-01-29] MEDS ORDERED: DEXTROSE 50% 25 GM/50 ML VIAL IV PRN (22:06)
[2020-01-29] MEDS ORDERED: ACETAMINOPHEN 325 MG TABLET PO PRN (22:11)
[2020-01-29] MEDS ORDERED: DOCUSATE SODIUM 100 MG CAPSULE PO PRN (22:11)
[2020-01-29] MEDS ORDERED: ONDANSETRON 4 MG/2 ML VIAL IV PRN (22:11)
[2020-01-29] MEDS ORDERED: VANCOMYCIN INJ 1,250 MG in SODIUM CHLORIDE 0.9% 250 ML IV PRN (23:08)
[2020-01-29] MEDS ORDERED: VANCOMYCIN INJ 1,500 MG in SODIUM CHLORIDE 0.9% 500 ML IV ONE (23:30)
[2020-01-29] MEDS: CITALOPRAM 20 MG TABLET PO SCH (23:38)
[2020-01-29] MEDS: PANTOPRAZOLE 40 MG TABLET PO SCH (23:38)
[2020-01-29] MEDS: HEPARIN 5,000 UNIT/1 ML VIAL SUBCUT SCH (23:38)
[2020-01-29] MEDS: ATORVASTATIN 40 MG TABLET PO SCH (23:38)
[2020-01-29] MEDS: METOPROLOL TARTRATE 50 MG TABLET PO SCH (23:38)
[2020-01-30] MEDS: LEVOTHYROXINE 25 MCG TABLET PO SCH (05:40)
[2020-01-30] MEDS: LEVOTHYROXINE 200 MCG TABLET PO SCH (05:40)
[2020-01-30 06:16] LABS: Basophils % 0.5 % (0.0-0.8); Eosinophils # 0.2 10*3/uL (0.0-0.87); Eosinophils % 4.1 % (0.00-10.9); Hematocrit 24.2 VOL% (42.0-52.0); Hemoglobin 7.3 GM/DL (14.0-18.0); Immature Granulocytes % 2.7 %; Immature Granulocytes Absolute 0.15 #; Lymphocytes # 0.5 10*3/uL (1.4-4.0); Lymphocytes % 8.8 % (21.2-54.2); Mean Corpuscular HGB Conc 30.2 GM/DL (32-36); Mean Platelet Volume 10.4 FL (9.6-12.0); Monocytes % 6.6 % (1.7-12.7); Neutrophils % 77.3 % (38.7-73.9); Platelet Count 139 T/CUMM (130-400); Red Blood Count 2.72 MC/CUMM (3.8-5.5); Red Cell Distribution Width 15.5 % (9.3-17.3); White Blood Count 5.6 T/CUMM (4-12)
[2020-01-30] MEDS: HEPARIN 5,000 UNIT/1 ML VIAL SUBCUT SCH ×3 (06:18→22:11)
[2020-01-30 06:49] LABS: Calcium 8.4 MG/DL (8.5-10.1); Osmolality,Calculated 280.7 MOS/KG (273-304); Thyroid Stimulating Hormone 10.2 uIU/ml (0.358-3.74)
[2020-01-30] MEDS: CALCIUM (CARBONATE)/VITAMIN D 600 MG-400 UNIT TABLET PO SCH (09:43)
[2020-01-30] MEDS: METOPROLOL TARTRATE 50 MG TABLET PO SCH ×2 (09:43→21:21)
[2020-01-30] MEDS: MAGNESIUM CHLORIDE 64 MG TABLET PO SCH (09:43)
[2020-01-30] MEDS: FERROUS SULFATE 325 MG TABLET PO SCH ×3 (09:43→21:21)
[2020-01-30] MEDS: ALFUZOSIN 10 MG TABLET PO SCH (09:43)
[2020-01-30] MEDS: allopurinoL 300 MG TABLET PO SCH (09:43)
[2020-01-30] MEDS: PANTOPRAZOLE 40 MG TABLET PO SCH ×2 (09:43→21:20)
[2020-01-30] MEDS ORDERED: BISACODYL 5 MG TABLET PO PRN (14:56)
[2020-01-30] MEDS ORDERED: VANCOMYCIN INJ 1,250 MG in SODIUM CHLORIDE 0.9% 250 ML IV ONE (17:00)
[2020-01-30] MEDS: CITALOPRAM 20 MG TABLET PO SCH (21:20)
[2020-01-30] MEDS: ATORVASTATIN 40 MG TABLET PO SCH (21:20)
[2020-01-30] MEDS: CEFEPIME 1,000 MG in SODIUM CHLORIDE 0.9% 100 ML IV SCH (21:20)
[2020-01-31] MEDS: LEVOTHYROXINE 25 MCG TABLET PO SCH (05:12)
[2020-01-31] MEDS: LEVOTHYROXINE 200 MCG TABLET PO SCH (05:12)
[2020-01-31 05:45] LABS: Basophils % 0.4 % (0.0-0.8); Eosinophils # 0.2 10*3/uL (0.0-0.87); Eosinophils % 4.2 % (0.00-10.9); Hematocrit 26.4 VOL% (42.0-52.0); Hemoglobin 7.7 GM/DL (14.0-18.0); Immature Granulocytes Absolute 0.17 #; Lymphocytes # 0.5 10*3/uL (1.4-4.0); Lymphocytes % 8.8 % (21.2-54.2); Mean Corpuscular HGB Conc 29.2 GM/DL (32-36); Mean Corpuscular Volume 89.5 FL (87-102); Mean Platelet Volume 9.8 FL (9.6-12.0); Monocytes % 7.6 % (1.7-12.7); Platelet Count 130 T/CUMM (130-400); Red Blood Count 2.95 MC/CUMM (3.8-5.5); Red Cell Distribution Width 15.2 % (9.3-17.3); White Blood Count 5.7 T/CUMM (4-12)
[2020-01-31] MEDS: HEPARIN 5,000 UNIT/1 ML VIAL SUBCUT SCH ×3 (06:03→22:07)
[2020-01-31 06:09] LABS: Calcium 8.4 MG/DL (8.5-10.1); Osmolality,Calculated 279.5 MOS/KG (273-304)
[2020-01-31] MEDS ORDERED: SODIUM CHLORIDE 0.9% 250 ML IV SCH (08:30)
[2020-01-31] MEDS ORDERED: LIDOCAINE 1% 20 ML VIAL ONE (09:13)
[2020-01-31] MEDS ORDERED: MIDAZOLAM 2 MG/2 ML VIAL ONE (10:15)
[2020-01-31] MEDS ORDERED: ETOMIDATE 40 MG/20 ML VIAL IV ONE (10:16)
[2020-01-31] MEDS ORDERED: ePHEDrine 50 MG/ML VIAL ONE (10:16)
[2020-01-31] MEDS ORDERED: fentaNYL 100 MCG/2 ML VIAL ONE (10:16)
[2020-01-31] MEDS ORDERED: DEXMEDETOMIDINE 200 MCG/2 ML VIAL ONE (10:16)
[2020-01-31] MEDS: FERROUS SULFATE 325 MG TABLET PO SCH ×3 (11:39→20:05)
[2020-01-31] MEDS: MAGNESIUM CHLORIDE 64 MG TABLET PO SCH (11:39)
[2020-01-31] MEDS: ALFUZOSIN 10 MG TABLET PO SCH (11:39)
[2020-01-31] MEDS: CALCIUM (CARBONATE)/VITAMIN D 600 MG-400 UNIT TABLET PO SCH (11:40)
[2020-01-31] MEDS: MULTIVITAMIN (BEROCCA) TABLET PO SCH (11:40)
[2020-01-31] MEDS: METOPROLOL TARTRATE 50 MG TABLET PO SCH ×2 (11:40→20:06)
[2020-01-31] MEDS: allopurinoL 300 MG TABLET PO SCH (11:40)
[2020-01-31] MEDS: PANTOPRAZOLE 40 MG TABLET PO SCH ×2 (11:41→20:06)
[2020-01-31] MEDS ORDERED: POTASSIUM CHLORIDE 20 MEQ TABLET PO ONE (12:54)
[2020-01-31] MEDS: CEFEPIME 1,000 MG in SODIUM CHLORIDE 0.9% 100 ML IV SCH (18:56)
[2020-01-31] MEDS: CITALOPRAM 20 MG TABLET PO SCH (20:06)
[2020-01-31] MEDS: ATORVASTATIN 40 MG TABLET PO SCH (20:06)
[2020-02-01] MEDS: HEPARIN 5,000 UNIT/1 ML VIAL SUBCUT SCH ×3 (06:14→22:42)
[2020-02-01] MEDS: LEVOTHYROXINE 200 MCG TABLET PO SCH (06:14)
[2020-02-01] MEDS: LEVOTHYROXINE 25 MCG TABLET PO SCH (06:14)
[2020-02-01] MEDS: MORPHINE 4 MG/1 ML VIAL IV PRN (08:35)
[2020-02-01] MEDS: GENTAMICIN 0.1% OINT 15 GM TUBE TOP SCH ×3 (08:39→20:35)
[2020-02-01] MEDS: CALCIUM (CARBONATE)/VITAMIN D 600 MG-400 UNIT TABLET PO SCH (08:39)
[2020-02-01] MEDS: MULTIVITAMIN (BEROCCA) TABLET PO SCH (08:39)
[2020-02-01] MEDS: PANTOPRAZOLE 40 MG TABLET PO SCH ×2 (08:40→20:35)
[2020-02-01] MEDS: METOPROLOL TARTRATE 50 MG TABLET PO SCH ×2 (08:40→20:35)
[2020-02-01] MEDS: FERROUS SULFATE 325 MG TABLET PO SCH ×3 (08:40→20:35)
[2020-02-01] MEDS: MAGNESIUM CHLORIDE 64 MG TABLET PO SCH (08:40)
[2020-02-01] MEDS: allopurinoL 300 MG TABLET PO SCH (08:41)
[2020-02-01] MEDS: ALFUZOSIN 10 MG TABLET PO SCH (08:41)
[2020-02-01] MEDS ORDERED: VANCOMYCIN INJ 1,250 MG in SODIUM CHLORIDE 0.9% 250 ML IV ONE (17:00)
[2020-02-01] MEDS: CEFEPIME 1,000 MG in SODIUM CHLORIDE 0.9% 100 ML IV SCH (18:29)
[2020-02-01] MEDS: ATORVASTATIN 40 MG TABLET PO SCH (20:34)
[2020-02-01] MEDS: CITALOPRAM 20 MG TABLET PO SCH (20:34)
[2020-02-02] MEDS: LEVOTHYROXINE 50 MCG TABLET PO SCH (06:30)
[2020-02-02] MEDS: HEPARIN 5,000 UNIT/1 ML VIAL SUBCUT SCH ×3 (06:33→23:27)
[2020-02-02] MEDS: METOPROLOL TARTRATE 50 MG TABLET PO SCH ×2 (10:27→20:16)
[2020-02-02] MEDS: ALFUZOSIN 10 MG TABLET PO SCH (10:27)
[2020-02-02] MEDS: FERROUS SULFATE 325 MG TABLET PO SCH ×3 (10:27→20:16)
[2020-02-02] MEDS: allopurinoL 300 MG TABLET PO SCH (10:27)
[2020-02-02] MEDS: MAGNESIUM CHLORIDE 64 MG TABLET PO SCH (10:27)
[2020-02-02] MEDS: PANTOPRAZOLE 40 MG TABLET PO SCH ×2 (10:28→20:16)
[2020-02-02] MEDS: GENTAMICIN 0.1% OINT 15 GM TUBE TOP SCH ×3 (10:28→20:18)
[2020-02-02] MEDS: CALCIUM (CARBONATE)/VITAMIN D 600 MG-400 UNIT TABLET PO SCH (10:28)
[2020-02-02] MEDS: MULTIVITAMIN (BEROCCA) TABLET PO SCH (10:28)
[2020-02-02] MEDS: POTASSIUM CHLORIDE 20 MEQ TABLET PO PRN ×3 (11:47→14:53)
[2020-02-02] MEDS: MORPHINE 4 MG/1 ML VIAL IV PRN (15:20)
[2020-02-02] MEDS ORDERED: TUBERCULIN SKIN TEST 0.1 ML SYRINGE INTRADERM ONE (16:51)
[2020-02-02] MEDS: CEFEPIME 1,000 MG in SODIUM CHLORIDE 0.9% 100 ML IV SCH (17:33)
[2020-02-02] MEDS: CITALOPRAM 20 MG TABLET PO SCH (20:15)
[2020-02-02] MEDS: ATORVASTATIN 40 MG TABLET PO SCH (20:16)
[2020-02-03] MEDS: LEVOTHYROXINE 50 MCG TABLET PO SCH (06:14)
[2020-02-03] MEDS: HEPARIN 5,000 UNIT/1 ML VIAL SUBCUT SCH ×3 (06:14→23:05)
[2020-02-03] MEDS: PANTOPRAZOLE 40 MG TABLET PO SCH ×2 (09:38→20:10)
[2020-02-03] MEDS: MULTIVITAMIN (BEROCCA) TABLET PO SCH (09:38)
[2020-02-03] MEDS: allopurinoL 300 MG TABLET PO SCH (09:38)
[2020-02-03] MEDS: ALFUZOSIN 10 MG TABLET PO SCH (09:38)
[2020-02-03] MEDS: CALCIUM (CARBONATE)/VITAMIN D 600 MG-400 UNIT TABLET PO SCH (09:38)
[2020-02-03] MEDS: MAGNESIUM CHLORIDE 64 MG TABLET PO SCH (09:39)
[2020-02-03] MEDS: FERROUS SULFATE 325 MG TABLET PO SCH ×3 (09:39→20:09)
[2020-02-03] MEDS: METOPROLOL TARTRATE 50 MG TABLET PO SCH ×2 (09:39→20:09)
[2020-02-03] MEDS: GENTAMICIN 0.1% OINT 15 GM TUBE TOP SCH ×3 (09:39→20:26)
[2020-02-03] MEDS: CEFEPIME 1,000 MG in SODIUM CHLORIDE 0.9% 100 ML IV SCH (17:24)
[2020-02-03] MEDS: ATORVASTATIN 40 MG TABLET PO SCH (20:09)
[2020-02-03] MEDS: CITALOPRAM 20 MG TABLET PO SCH (20:09)
[2020-02-04] MEDS: LEVOTHYROXINE 50 MCG TABLET PO SCH (06:14)
[2020-02-04] MEDS: HEPARIN 5,000 UNIT/1 ML VIAL SUBCUT SCH ×3 (06:14→23:09)
[2020-02-04] MEDS: GENTAMICIN 0.1% OINT 15 GM TUBE TOP SCH ×3 (08:15→20:36)
[2020-02-04] MEDS ORDERED: HEPARIN 10,000 UNIT/10 ML VIAL IV SCH (09:45)
[2020-02-04] MEDS ORDERED: ALTEPLASE 2 MG VIAL IV ONE (10:30)
[2020-02-04] MEDS: MAGNESIUM CHLORIDE 64 MG TABLET PO SCH (11:56)
[2020-02-04] MEDS: MULTIVITAMIN (BEROCCA) TABLET PO SCH (11:56)
[2020-02-04] MEDS: CALCIUM (CARBONATE)/VITAMIN D 600 MG-400 UNIT TABLET PO SCH (11:56)
[2020-02-04] MEDS: FERROUS SULFATE 325 MG TABLET PO SCH ×3 (11:56→20:35)
[2020-02-04] MEDS: METOPROLOL TARTRATE 50 MG TABLET PO SCH ×2 (11:56→20:36)
[2020-02-04] MEDS: PANTOPRAZOLE 40 MG TABLET PO SCH ×2 (11:56→20:35)
[2020-02-04] MEDS: ALFUZOSIN 10 MG TABLET PO SCH (11:57)
[2020-02-04] MEDS: allopurinoL 300 MG TABLET PO SCH (11:57)
[2020-02-04] MEDS: CEFEPIME 1,000 MG in SODIUM CHLORIDE 0.9% 100 ML IV SCH (17:14)
[2020-02-04] MEDS: CITALOPRAM 20 MG TABLET PO SCH (20:35)
[2020-02-04] MEDS: ATORVASTATIN 40 MG TABLET PO SCH (20:35)
[2020-02-05] MEDS: HEPARIN 5,000 UNIT/1 ML VIAL SUBCUT SCH ×3 (06:22→23:39)
[2020-02-05] MEDS: LEVOTHYROXINE 50 MCG TABLET PO SCH (06:25)
[2020-02-05] MEDS: GENTAMICIN 0.1% OINT 15 GM TUBE TOP SCH ×3 (09:26→20:44)
[2020-02-05] MEDS ORDERED: LIDOCAINE 1%/EPI INJ 20 ML VIAL ONE (10:42)
[2020-02-05] MEDS ORDERED: BUPIVACAINE MPF 0.25% 30 ML VIAL ONE (10:42)
[2020-02-05] MEDS ORDERED: HEPARIN 5,000 UNIT/1 ML VIAL ONE (10:42)
[2020-02-05] MEDS: FERROUS SULFATE 325 MG TABLET PO SCH ×3 (10:56→20:43)
[2020-02-05] MEDS ORDERED: SODIUM CHLORIDE 0.9% 250 ML IV SCH (11:00)
[2020-02-05] MEDS ORDERED: ceFAZolin 1,000 MG VIAL ONE (11:09)
[2020-02-05] MEDS ORDERED: SILVER NITRATE STICK 1 EACH TOP ONE (11:11)
[2020-02-05] MEDS ORDERED: propofoL 200 MG/20 ML VIAL IV ONE (11:41)
[2020-02-05] MEDS ORDERED: LIDOCAINE 2% 5 ML VIAL ONE (11:41)
[2020-02-05] MEDS ORDERED: KETAMINE 500 MG/10 ML VIAL ONE (11:42)
[2020-02-05] MEDS ORDERED: DEXMEDETOMIDINE 200 MCG/2 ML VIAL ONE (11:42)
[2020-02-05] MEDS ORDERED: fentaNYL 100 MCG/2 ML VIAL ONE (11:42)
[2020-02-05] MEDS ORDERED: MIDAZOLAM 2 MG/2 ML VIAL ONE (11:42)
[2020-02-05] MEDS: MAGNESIUM CHLORIDE 64 MG TABLET PO SCH (15:20)
[2020-02-05] MEDS: MULTIVITAMIN (BEROCCA) TABLET PO SCH (15:20)
[2020-02-05] MEDS: PANTOPRAZOLE 40 MG TABLET PO SCH ×2 (15:20→20:43)
[2020-02-05] MEDS: allopurinoL 300 MG TABLET PO SCH (15:20)
[2020-02-05] MEDS: CALCIUM (CARBONATE)/VITAMIN D 600 MG-400 UNIT TABLET PO SCH (15:20)
[2020-02-05] MEDS: ALFUZOSIN 10 MG TABLET PO SCH (15:20)
[2020-02-05] MEDS: METOPROLOL TARTRATE 50 MG TABLET PO SCH ×2 (15:20→20:44)
[2020-02-05] MEDS: CITALOPRAM 20 MG TABLET PO SCH (20:44)
[2020-02-05] MEDS: ATORVASTATIN 40 MG TABLET PO SCH (20:44)
[2020-02-06 06:10] LABS: Calcium 8.5 MG/DL (8.5-10.1); Osmolality,Calculated 285.5 MOS/KG (273-304)
[2020-02-06] MEDS: HEPARIN 5,000 UNIT/1 ML VIAL SUBCUT SCH (06:23)
[2020-02-06] MEDS: LEVOTHYROXINE 50 MCG TABLET PO SCH (06:23)
[2020-02-06 07:27] VITALS: BP 116/48
[2020-02-06] MEDS ORDERED: COLLAGENASE OINT 30 GM TUBE TOP SCH (09:00)
[2020-02-06] MEDS: MULTIVITAMIN (BEROCCA) TABLET PO SCH (12:37)
[2020-02-06] MEDS: allopurinoL 300 MG TABLET PO SCH (12:37)
[2020-02-06] MEDS: METOPROLOL TARTRATE 50 MG TABLET PO SCH (12:37)
[2020-02-06] MEDS: ALFUZOSIN 10 MG TABLET PO SCH (12:37)
[2020-02-06] MEDS: MAGNESIUM CHLORIDE 64 MG TABLET PO SCH (12:38)
[2020-02-06] MEDS: GENTAMICIN 0.1% OINT 15 GM TUBE TOP SCH (12:38)
[2020-02-06] MEDS: PANTOPRAZOLE 40 MG TABLET PO SCH (12:38)
[2020-02-06] MEDS: FERROUS SULFATE 325 MG TABLET PO SCH (12:38)
[2020-02-06] MEDS: CALCIUM (CARBONATE)/VITAMIN D 600 MG-400 UNIT TABLET PO SCH (12:41)
== END 2020-02-06 14:15 | DRG 264 ==
LOC: EDBD → EDUNIT# → N.EDINP 18:13 → N.ED 18:13 → N.TELES 22:33 → SUATTDRO 01-30 11:19
PROVIDERS: ADMIT Internal Medicine; ATTEND Internal Medicine

== ENCOUNTER 2020-02-14 09:57 | Observation (INO) ==
[2020-02-14] MEDS ORDERED: ASPIRIN 325 MG TABLET PO STA (10:34)
[2020-02-14 11:48] LABS: Basophils # 0.1 10*3/uL (0.0-0.2); Eosinophils # 0.2 10*3/uL (0.0-0.87); Eosinophils % 2.5 % (0.00-10.9); Hematocrit 25.6 VOL% (42.0-52.0); Hemoglobin 7.7 GM/DL (14.0-18.0); Immature Granulocytes Absolute 0.16 #; Lymphocytes # 0.8 10*3/uL (1.4-4.0); Lymphocytes % 10.2 % (21.2-54.2); Mean Corpuscular HGB Conc 30.1 GM/DL (32-36); Mean Corpuscular Volume 92.8 FL (87-102); Mean Platelet Volume 10.1 FL (9.6-12.0); Monocytes % 8.3 % (1.7-12.7); Platelet Count 153 T/CUMM (130-400); Red Blood Count 2.76 MC/CUMM (3.8-5.5); Red Cell Distribution Width 18.4 % (9.3-17.3)
[2020-02-14 12:13] LABS: Albumin 2.5 G/DL (3.4-5.0); Bilirubin,Total 0.6 MG/DL (0.2-1.0); Calcium 9.1 MG/DL (8.5-10.1); Osmolality,Calculated 276.2 MOS/KG (273-304); Total Protein 5.9 G/DL (6.4-8.3)
[2020-02-14] MEDS ORDERED: GLUCAGON 1 MG VIAL IM PRN (12:58)
[2020-02-14] MEDS ORDERED: DEXTROSE 50% 25 GM/50 ML VIAL IV PRN (12:58)
[2020-02-14] MEDS ORDERED: ONDANSETRON 4 MG/2 ML VIAL IV PRN (12:58)
[2020-02-14] MEDS ORDERED: ACETAMINOPHEN 325 MG TABLET PO PRN (12:58)
[2020-02-14] MEDS ORDERED: HEPARIN 10,000 UNIT/10 ML VIAL IV SCH (16:15)
[2020-02-15 04:15] LABS: Basophils % 0.8 % (0.0-0.8); Eosinophils # 0.2 10*3/uL (0.0-0.87); Eosinophils % 3.2 % (0.00-10.9); Hematocrit 24.2 VOL% (42.0-52.0); Hemoglobin 7.2 GM/DL (14.0-18.0); Immature Granulocytes % 2.3 %; Immature Granulocytes Absolute 0.12 #; Lymphocytes # 0.7 10*3/uL (1.4-4.0); Lymphocytes % 13.5 % (21.2-54.2); Mean Corpuscular HGB Conc 29.8 GM/DL (32-36); Mean Corpuscular Volume 93.1 FL (87-102); Mean Platelet Volume 10.2 FL (9.6-12.0); Neutrophils % 68.2 % (38.7-73.9); Platelet Count 129 T/CUMM (130-400); Red Cell Distribution Width 18.4 % (9.3-17.3); White Blood Count 5.3 T/CUMM (4-12)
[2020-02-15 04:35] LABS: Albumin 2.4 G/DL (3.4-5.0); Bilirubin,Total 1.4 MG/DL (0.2-1.0); Calcium 8.5 MG/DL (8.5-10.1); Osmolality,Calculated 282.4 MOS/KG (273-304); Total Protein 5.7 G/DL (6.4-8.3)
[2020-02-15 04:36] LABS: % Iron Saturation 18.7 % (18-50); Ferritin 935.2 ng/ml (26-388)
[2020-02-15 04:43] LABS: Folate 3.3 NG/ML (5.4-24.0)
[2020-02-15] MEDS ORDERED: MIDODRINE 5 MG TABLET PO PRN (09:37)
[2020-02-15] MEDS: GENTAMICIN 0.1% OINT 15 GM TUBE TOP SCH ×3 (10:26→21:20)
[2020-02-15] MEDS: PANTOPRAZOLE 40 MG TABLET PO SCH (10:26)
[2020-02-15] MEDS: MAGNESIUM CHLORIDE 64 MG TABLET PO SCH (10:26)
[2020-02-15] MEDS: METOPROLOL TARTRATE 50 MG TABLET PO SCH ×2 (10:27→21:20)
[2020-02-15] MEDS ORDERED: TUBERCULIN SKIN TEST 0.1 ML SYRINGE INTRADERM ONE (11:24)
[2020-02-15] MEDS: ACETIC ACID 0.25% IRRIGATION 1,000 ML BOTTLE IRRIG SCH ×2 (11:35→21:20)
[2020-02-15] MEDS: FERROUS SULFATE 325 MG TABLET PO SCH ×2 (15:26→21:20)
[2020-02-15 16:49] LABS: Apearance,Urine CLOUDY (Clear); Bilirubin,Urine Negative (Negative); Blood, Urine Large mg/dL (Negative); Glucose,Urine (UA) Negative (Negative); Ketones,Urine Negative (Negative); Nitrite,Urine Negative (Negative); Protein,Urine 100 MG/DL; RBC,Urine 699 /HPF (0-4); Urine Color Red (Yellow); Urine Specific Gravity 1.014 (1.001-1.035); Urine Urobilinogen < 2.0 EU/DL (0.2-1.0); WBC,Urine 3268 /HPF (0-6)
[2020-02-15] MEDS: CITALOPRAM 20 MG TABLET PO SCH (21:20)
[2020-02-16 04:21] LABS: Basophils % 0.7 % (0.0-0.8); Eosinophils # 0.2 10*3/uL (0.0-0.87); Hematocrit 25.1 VOL% (42.0-52.0); Hemoglobin 7.4 GM/DL (14.0-18.0); Immature Granulocytes % 1.8 %; Lymphocytes # 0.7 10*3/uL (1.4-4.0); Lymphocytes % 11.9 % (21.2-54.2); Mean Corpuscular HGB Conc 29.5 GM/DL (32-36); Mean Corpuscular Volume 92.3 FL (87-102); Mean Platelet Volume 9.6 FL (9.6-12.0); Monocytes % 10.2 % (1.7-12.7); Neutrophils % 71.4 % (38.7-73.9); Platelet Count 137 T/CUMM (130-400); Red Blood Count 2.72 MC/CUMM (3.8-5.5); Red Cell Distribution Width 18.5 % (9.3-17.3); White Blood Count 5.5 T/CUMM (4-12)
[2020-02-16 04:39] LABS: Albumin 2.4 G/DL (3.4-5.0); Bilirubin,Total 0.4 MG/DL (0.2-1.0); Calcium 8.8 MG/DL (8.5-10.1); Osmolality,Calculated 282.5 MOS/KG (273-304); Total Protein 5.7 G/DL (6.4-8.3)
[2020-02-16] MEDS: LEVOTHYROXINE 50 MCG TABLET PO SCH (06:32)
[2020-02-16] MEDS: cefTRIAXone 1,000 MG in SYRINGE 1 EACH IV SCH (09:27)
[2020-02-16] MEDS: COLLAGENASE OINT 30 GM TUBE TOP SCH (09:27)
[2020-02-16] MEDS: PANTOPRAZOLE 40 MG TABLET PO SCH (09:27)
[2020-02-16] MEDS: GENTAMICIN 0.1% OINT 15 GM TUBE TOP SCH ×3 (09:27→21:33)
[2020-02-16] MEDS: MAGNESIUM CHLORIDE 64 MG TABLET PO SCH (09:27)
[2020-02-16] MEDS: METOPROLOL TARTRATE 50 MG TABLET PO SCH ×2 (09:27→21:33)
[2020-02-16] MEDS: FERROUS SULFATE 325 MG TABLET PO SCH ×3 (09:27→21:33)
[2020-02-16] MEDS: CALCIUM (CARBONATE)/VITAMIN D 600 MG-400 UNIT TABLET PO SCH (09:27)
[2020-02-16] MEDS: ACETIC ACID 0.25% IRRIGATION 1,000 ML BOTTLE IRRIG SCH ×2 (09:28→20:02)
[2020-02-16] MEDS: CITALOPRAM 20 MG TABLET PO SCH (21:33)
[2020-02-17] MEDS: LEVOTHYROXINE 50 MCG TABLET PO SCH (06:24)
[2020-02-17] MEDS: cefTRIAXone 1,000 MG in SYRINGE 1 EACH IV SCH (06:24)
[2020-02-17 06:25] LABS: Basophils # 0.1 10*3/uL (0.0-0.2); Eosinophils # 0.2 10*3/uL (0.0-0.87); Eosinophils % 4.3 % (0.00-10.9); Hematocrit 25.8 VOL% (42.0-52.0); Hemoglobin 7.6 GM/DL (14.0-18.0); Immature Granulocytes % 3.1 %; Immature Granulocytes Absolute 0.15 #; Lymphocytes # 0.6 10*3/uL (1.4-4.0); Lymphocytes % 12.6 % (21.2-54.2); Mean Corpuscular HGB Conc 29.5 GM/DL (32-36); Mean Corpuscular Volume 93.1 FL (87-102); Mean Platelet Volume 9.7 FL (9.6-12.0); Monocytes % 11.4 % (1.7-12.7); Neutrophils % 67.6 % (38.7-73.9); Platelet Count 122 T/CUMM (130-400); Red Blood Count 2.77 MC/CUMM (3.8-5.5); White Blood Count 4.8 T/CUMM (4-12)
[2020-02-17 06:50] LABS: Calcium 9.1 MG/DL (8.5-10.1); Osmolality,Calculated 274.8 MOS/KG (273-304)
[2020-02-17] MEDS: PANTOPRAZOLE 40 MG TABLET PO SCH (10:04)
[2020-02-17] MEDS: MAGNESIUM CHLORIDE 64 MG TABLET PO SCH (10:04)
[2020-02-17] MEDS: CALCIUM (CARBONATE)/VITAMIN D 600 MG-400 UNIT TABLET PO SCH (10:04)
[2020-02-17] MEDS: FERROUS SULFATE 325 MG TABLET PO SCH ×3 (10:04→21:09)
[2020-02-17] MEDS: METOPROLOL TARTRATE 50 MG TABLET PO SCH ×2 (10:04→21:09)
[2020-02-17] MEDS: COLLAGENASE OINT 30 GM TUBE TOP SCH (15:10)
[2020-02-17] MEDS: GENTAMICIN 0.1% OINT 15 GM TUBE TOP SCH ×3 (15:10→21:11)
[2020-02-17] MEDS: ACETIC ACID 0.25% IRRIGATION 1,000 ML BOTTLE IRRIG SCH ×3 (15:10→21:10)
[2020-02-17] MEDS: CITALOPRAM 20 MG TABLET PO SCH (21:10)
[2020-02-18] MEDS: LEVOTHYROXINE 50 MCG TABLET PO SCH (05:33)
[2020-02-18 05:42] LABS: Basophils # 0.1 10*3/uL (0.0-0.2); Basophils % 1.1 % (0.0-0.8); Eosinophils # 0.2 10*3/uL (0.0-0.87); Eosinophils % 4.3 % (0.00-10.9); Hematocrit 26.6 VOL% (42.0-52.0); Immature Granulocytes % 2.6 %; Immature Granulocytes Absolute 0.12 #; Lymphocytes # 0.6 10*3/uL (1.4-4.0); Lymphocytes % 12.2 % (21.2-54.2); Mean Corpuscular HGB Conc 30.1 GM/DL (32-36); Mean Corpuscular Volume 92.7 FL (87-102); Monocytes % 10.9 % (1.7-12.7); Neutrophils % 68.9 % (38.7-73.9); Platelet Count 129 T/CUMM (130-400); Red Blood Count 2.87 MC/CUMM (3.8-5.5); Red Cell Distribution Width 17.8 % (9.3-17.3); White Blood Count 4.7 T/CUMM (4-12)
[2020-02-18] MEDS: cefTRIAXone 1,000 MG in SYRINGE 1 EACH IV SCH (06:00)
[2020-02-18 06:05] LABS: Calcium 8.9 MG/DL (8.5-10.1); Osmolality,Calculated 278.7 MOS/KG (273-304)
[2020-02-18] MEDS ORDERED: IRON SUCROSE 300 MG in SODIUM CHLORIDE 0.9% 100 ML IV ONE ×2 (06:52→09:00)
[2020-02-18] MEDS ORDERED: SODIUM CHLORIDE 0.9% 1,000 ML IV PRN (06:54)
[2020-02-18] MEDS: FERROUS SULFATE 325 MG TABLET PO SCH ×3 (09:22→20:51)
[2020-02-18] MEDS: MAGNESIUM CHLORIDE 64 MG TABLET PO SCH (09:22)
[2020-02-18] MEDS: CALCIUM (CARBONATE)/VITAMIN D 600 MG-400 UNIT TABLET PO SCH (09:23)
[2020-02-18] MEDS: PANTOPRAZOLE 40 MG TABLET PO SCH (09:24)
[2020-02-18] MEDS: METOPROLOL TARTRATE 50 MG TABLET PO SCH ×2 (09:26→20:51)
[2020-02-18] MEDS: ACETIC ACID 0.25% IRRIGATION 1,000 ML BOTTLE IRRIG SCH ×2 (09:38→20:49)
[2020-02-18] MEDS: GENTAMICIN 0.1% OINT 15 GM TUBE TOP SCH ×3 (09:39→20:49)
[2020-02-18] MEDS: COLLAGENASE OINT 30 GM TUBE TOP SCH (09:39)
[2020-02-18] MEDS: CITALOPRAM 20 MG TABLET PO SCH (20:51)
[2020-02-19 05:22] LABS: Basophils # 0.1 10*3/uL (0.0-0.2); Eosinophils # 0.2 10*3/uL (0.0-0.87); Eosinophils % 4.2 % (0.00-10.9); Hematocrit 29.5 VOL% (42.0-52.0); Immature Granulocytes % 2.8 %; Immature Granulocytes Absolute 0.14 #; Lymphocytes # 0.7 10*3/uL (1.4-4.0); Lymphocytes % 14.6 % (21.2-54.2); Mean Corpuscular HGB Conc 30.5 GM/DL (32-36); Mean Corpuscular Volume 92.8 FL (87-102); Mean Platelet Volume 10.5 FL (9.6-12.0); Monocytes % 13.8 % (1.7-12.7); Neutrophils % 63.6 % (38.7-73.9); Platelet Count 135 T/CUMM (130-400); Red Blood Count 3.18 MC/CUMM (3.8-5.5); Red Cell Distribution Width 17.1 % (9.3-17.3)
[2020-02-19 05:34] LABS: Calcium 8.8 MG/DL (8.5-10.1); Osmolality,Calculated 277.5 MOS/KG (273-304)
[2020-02-19] MEDS: LEVOTHYROXINE 50 MCG TABLET PO SCH (06:11)
[2020-02-19] MEDS: cefTRIAXone 1,000 MG in SYRINGE 1 EACH IV SCH (06:12)
[2020-02-19 09:50] VITALS: BP 110/60
== END 2020-02-19 09:03 ==
LOC: EDUNIT# → N.ED 09:57 → N.EDINP 09:57 → SUATTDRO 12:55 → N.TELEN 17:24
PROVIDERS: ADMIT Internal Medicine; ATTEND Internal Medicine

== ENCOUNTER 2020-04-25 16:15 | Inpatient (IN) ==
[2020-04-25 18:47] LABS: Basophils % 0.9 % (0.0-0.8); Eosinophils # 0.1 10*3/uL (0.0-0.87); Eosinophils % 2.3 % (0.00-10.9); Immature Granulocytes % 1.2 %; Immature Granulocytes Absolute 0.04 #; Lymphocytes # 0.6 10*3/uL (1.4-4.0); Lymphocytes % 17.9 % (21.2-54.2); Mean Corpuscular HGB Conc 30.8 GM/DL (32-36); Mean Corpuscular Volume 93.2 FL (87-102); Mean Platelet Volume 9.6 FL (9.6-12.0); Monocytes % 11.5 % (1.7-12.7); Neutrophils % 66.2 % (38.7-73.9); Platelet Count 108 T/CUMM (130-400); Red Blood Count 2.79 MC/CUMM (3.8-5.5); Red Cell Distribution Width 16.7 % (9.3-17.3); White Blood Count 3.5 T/CUMM (4-12)
[2020-04-25 19:02] LABS: INR 1.1; PT Patient Result 11.4 SECS (9.8-11.9); Partial Thromboplastin Time 33.4 SECS (23.9-33.8)
[2020-04-25 19:03] LABS: Alanine Aminotransferase < 6 U/L (16-61); Albumin 1.6 G/DL (3.4-5.0); Alkaline Phosphatase 98 U/L (45-117); Aspartate Amino Transferase 11 U/L (0-37); Blood Urea Nitrogen 7 MG/DL (7-18); Calcium 7.6 MG/DL (8.5-10.1); Estimated Glom Filtration Rate 34 ML/MIN; Glucose 77 MG/DL (74-106); Osmolality,Calculated 269.8 MOS/KG (273-304); Total Protein 4.3 G/DL (6.4-8.3)
[2020-04-25] MEDS ORDERED: SODIUM CHLORIDE 0.9% 1,000 ML IV STA (20:30)
[2020-04-25] MEDS ORDERED: POTASSIUM CHLORIDE RIDER 10 MEQ in PREMIX 1 EACH IV ONE (20:33)
[2020-04-25] MEDS ORDERED: DOCUSATE SODIUM 100 MG CAPSULE PO PRN (22:06)
[2020-04-25] MEDS ORDERED: GLUCAGON 1 MG VIAL IM PRN (22:06)
[2020-04-25] MEDS ORDERED: DEXTROSE 50% 25 GM/50 ML VIAL IV PRN ×2 (22:06)
[2020-04-25] MEDS ORDERED: ONDANSETRON 4 MG/2 ML VIAL IV PRN (22:06)
[2020-04-26] MEDS: ACETAMINOPHEN 325 MG TABLET PO PRN (01:31)
[2020-04-26] MEDS: CITALOPRAM 20 MG TABLET PO SCH ×2 (01:31→20:52)
[2020-04-26] MEDS: PANTOPRAZOLE 40 MG TABLET PO SCH ×3 (01:31→20:52)
[2020-04-26] MEDS ORDERED: POTASSIUM CHLORIDE 20 MEQ TABLET PO ONE ×3 (02:00→10:29)
[2020-04-26 02:18] LABS: Basophils % 1.1 % (0.0-0.8); Eosinophils # 0.1 10*3/uL (0.0-0.87); Eosinophils % 2.4 % (0.00-10.9); Hematocrit 27.5 VOL% (42.0-52.0); Hemoglobin 8.6 GM/DL (14.0-18.0); Immature Granulocytes % 2.1 %; Immature Granulocytes Absolute 0.08 #; Lymphocytes # 0.5 10*3/uL (1.4-4.0); Lymphocytes % 14.1 % (21.2-54.2); Mean Corpuscular HGB Conc 31.3 GM/DL (32-36); Mean Corpuscular Volume 92.6 FL (87-102); Mean Platelet Volume 9.6 FL (9.6-12.0); Neutrophils % 72.3 % (38.7-73.9); Platelet Count 108 T/CUMM (130-400); Red Blood Count 2.97 MC/CUMM (3.8-5.5); Red Cell Distribution Width 16.8 % (9.3-17.3); White Blood Count 3.8 T/CUMM (4-12)
[2020-04-26 05:12] LABS: Calcium 7.7 MG/DL (8.5-10.1); Osmolality,Calculated 272.7 MOS/KG (273-304); Thyroid Stimulating Hormone 5.25 uIU/ml (0.358-3.74)
[2020-04-26] MEDS: LEVOTHYROXINE 100 MCG TABLET PO SCH (06:17)
[2020-04-26] MEDS: NYSTATIN OINT 15 GM TUBE TOP SCH ×2 (08:40→20:52)
[2020-04-26] MEDS: CALCIUM (CARBONATE)/VITAMIN D 600 MG-400 UNIT TABLET PO SCH (08:40)
[2020-04-26] MEDS: LACTOBACILLUS RHAMNOSUS GG CAPSULE PO SCH ×2 (08:40→16:48)
[2020-04-26] MEDS: COLLAGENASE OINT 30 GM TUBE TOP SCH ×2 (08:40→20:52)
[2020-04-26] MEDS: FERROUS SULFATE 300 MG/5 ML UDCUP PO SCH ×3 (08:40→16:47)
[2020-04-26] MEDS ORDERED: MAG PO SCH (09:00)
[2020-04-26] MEDS ORDERED: CALCIUM PO SCH (09:00)
[2020-04-26] MEDS ORDERED: MIDODRINE 5 MG TABLET PO SCH (09:00)
[2020-04-26] MEDS: INSULIN LISPRO 100 UNIT/ML SUBCUT SCH ×4 (09:12→20:52)
[2020-04-26 11:20] LABS: Alanine Aminotransferase 9 U/L (16-61); Albumin 1.5 G/DL (3.4-5.0); Alkaline Phosphatase 97 U/L (45-117); Aspartate Amino Transferase 12 U/L (0-37); Bilirubin,Indirect 0.2 MG/DL (0.0-1.0); Bilirubin,Total < 0.39 MG/DL (0.2-1.0); Total Protein 4.3 G/DL (6.4-8.3)
[2020-04-26] MEDS ORDERED: HEPARIN 10,000 UNIT/10 ML VIAL IV SCH (13:00)
[2020-04-26 14:27] LABS: Hepatitis B Core IgM Quant 0.44 Index; Hepatitis B Surface Ag Quant < 0.10 Index; Hepatitis B Surface Ag Result Negative (Negative); Hepatitis C Virus Ab Quant < 0.02 Index; Hepatitis C Virus Ab Result Negative (Negative)
[2020-04-26] MEDS: MIDODRINE 5 MG TABLET PO SCH (20:52)
[2020-04-27] MEDS: LEVOTHYROXINE 100 MCG TABLET PO SCH (05:39)
[2020-04-27 06:15] LABS: Basophils % 0.7 % (0.0-0.8); Eosinophils # 0.1 10*3/uL (0.0-0.87); Hematocrit 23.7 VOL% (42.0-52.0); Hemoglobin 7.5 GM/DL (14.0-18.0); Immature Granulocytes % 0.7 %; Immature Granulocytes Absolute 0.02 #; Lymphocytes # 0.6 10*3/uL (1.4-4.0); Lymphocytes % 18.3 % (21.2-54.2); Mean Corpuscular HGB Conc 31.6 GM/DL (32-36); Mean Corpuscular Volume 92.9 FL (87-102); Mean Platelet Volume 9.7 FL (9.6-12.0); Neutrophils % 67.3 % (38.7-73.9); Platelet Count 102 T/CUMM (130-400); Red Blood Count 2.55 MC/CUMM (3.8-5.5); Red Cell Distribution Width 17.3 % (9.3-17.3)
[2020-04-27 06:32] LABS: Calcium 7.7 MG/DL (8.5-10.1); Osmolality,Calculated 273.5 MOS/KG (273-304)
[2020-04-27] MEDS: INSULIN LISPRO 100 UNIT/ML SUBCUT SCH ×4 (08:49→21:27)
[2020-04-27] MEDS: MIDODRINE 5 MG TABLET PO SCH ×2 (08:50→21:26)
[2020-04-27] MEDS: LACTOBACILLUS RHAMNOSUS GG CAPSULE PO SCH ×2 (08:50→16:46)
[2020-04-27] MEDS: COLLAGENASE OINT 30 GM TUBE TOP SCH ×2 (08:50→21:27)
[2020-04-27] MEDS: PANTOPRAZOLE 40 MG TABLET PO SCH ×2 (08:50→21:26)
[2020-04-27] MEDS: FERROUS SULFATE 300 MG/5 ML UDCUP PO SCH ×3 (08:50→16:46)
[2020-04-27] MEDS: NYSTATIN OINT 15 GM TUBE TOP SCH ×2 (08:51→21:27)
[2020-04-27] MEDS ORDERED: fentaNYL 100 MCG/2 ML VIAL ONE (08:53)
[2020-04-27] MEDS ORDERED: MIDAZOLAM 2 MG/2 ML VIAL ONE (08:53)
[2020-04-27] MEDS: CALCIUM (CARBONATE)/VITAMIN D 600 MG-400 UNIT TABLET PO SCH (08:56)
[2020-04-27] MEDS: ACETAMINOPHEN 325 MG TABLET PO PRN (10:08)
[2020-04-27] MEDS ORDERED: SODIUM CHLORIDE 0.9% 1,000 ML IV PRN (12:10)
[2020-04-27] MEDS: CITALOPRAM 20 MG TABLET PO SCH (21:27)
[2020-04-28] MEDS: LEVOTHYROXINE 100 MCG TABLET PO SCH (05:55)
[2020-04-28 06:06] LABS: Basophils % 0.9 % (0.0-0.8); Eosinophils # 0.1 10*3/uL (0.0-0.87); Hematocrit 26.4 VOL% (42.0-52.0); Hemoglobin 7.9 GM/DL (14.0-18.0); Immature Granulocytes % 1.2 %; Immature Granulocytes Absolute 0.04 #; Lymphocytes # 0.8 10*3/uL (1.4-4.0); Mean Corpuscular HGB Conc 29.9 GM/DL (32-36); Mean Corpuscular Volume 96.4 FL (87-102); Mean Platelet Volume 9.6 FL (9.6-12.0); Monocytes % 10.5 % (1.7-12.7); Neutrophils % 60.4 % (38.7-73.9); Platelet Count 108 T/CUMM (130-400); Red Blood Count 2.74 MC/CUMM (3.8-5.5); Red Cell Distribution Width 17.8 % (9.3-17.3); White Blood Count 3.3 T/CUMM (4-12)
[2020-04-28 06:19] LABS: Calcium 8.2 MG/DL (8.5-10.1); Osmolality,Calculated 281.1 MOS/KG (273-304)
[2020-04-28] MEDS ORDERED: ceFAZolin 1,000 MG in SYRINGE 1 EACH IV ONE (08:00)
[2020-04-28] MEDS: COLLAGENASE OINT 30 GM TUBE TOP SCH ×2 (08:25→21:02)
[2020-04-28] MEDS: NYSTATIN OINT 15 GM TUBE TOP SCH ×2 (08:25→21:02)
[2020-04-28] MEDS ORDERED: HEPARIN LOCK FLUSH 500 UNIT/5 ML SYRINGE IV ONE (08:28)
[2020-04-28] MEDS ORDERED: TISSUE ADHESIVE 1 EACH APPLICATOR TOP ONE (08:28)
[2020-04-28] MEDS ORDERED: fentaNYL 100 MCG/2 ML VIAL IV ONE (08:30)
[2020-04-28] MEDS ORDERED: MIDAZOLAM 2 MG/2 ML VIAL IV ONE (08:30)
[2020-04-28] MEDS: INSULIN LISPRO 100 UNIT/ML SUBCUT SCH ×4 (08:42→23:20)
[2020-04-28] MEDS: FERROUS SULFATE 300 MG/5 ML UDCUP PO SCH ×3 (09:59→16:40)
[2020-04-28] MEDS: CALCIUM (CARBONATE)/VITAMIN D 600 MG-400 UNIT TABLET PO SCH (10:50)
[2020-04-28] MEDS: LACTOBACILLUS RHAMNOSUS GG CAPSULE PO SCH ×2 (10:50→16:40)
[2020-04-28] MEDS: MIDODRINE 5 MG TABLET PO SCH ×2 (10:50→21:00)
[2020-04-28] MEDS: PANTOPRAZOLE 40 MG TABLET PO SCH ×2 (10:51→21:00)
[2020-04-28] MEDS ORDERED: VANCOMYCIN INJ 750 MG in SODIUM CHLORIDE 0.9% 250 ML IV ONE (10:53)
[2020-04-28] MEDS ORDERED: HEPARIN LOCK FLUSH 500 UNIT/5 ML SYRINGE IV PRN (11:49)
[2020-04-28] MEDS ORDERED: VANCOMYCIN INJ 2,500 MG in SODIUM CHLORIDE 0.9% 500 ML IV ONE (12:30)
[2020-04-28] MEDS: MENTHOL/ZINC OXIDE OINT 71 GM JAR TOP SCH ×2 (14:47→21:02)
[2020-04-28] MEDS: CITALOPRAM 20 MG TABLET PO SCH (21:00)
[2020-04-28] MEDS: ACETAMINOPHEN 325 MG TABLET PO PRN (21:01)
[2020-04-29 05:21] LABS: Eosinophils # 0.1 10*3/uL (0.0-0.87); Eosinophils % 3.8 % (0.00-10.9); Hematocrit 31.1 VOL% (42.0-52.0); Hemoglobin 9.7 GM/DL (14.0-18.0); Immature Granulocytes % 1.3 %; Immature Granulocytes Absolute 0.04 #; Lymphocytes # 0.6 10*3/uL (1.4-4.0); Lymphocytes % 18.6 % (21.2-54.2); Mean Corpuscular HGB Conc 31.2 GM/DL (32-36); Mean Corpuscular Volume 93.1 FL (87-102); Monocytes % 12.2 % (1.7-12.7); Neutrophils % 63.1 % (38.7-73.9); Platelet Count 109 T/CUMM (130-400); Red Blood Count 3.34 MC/CUMM (3.8-5.5); White Blood Count 3.1 T/CUMM (4-12)
[2020-04-29 05:47] LABS: Hypochromasia 1+; Microcytosis 1+; Ovalocytes Slight; Platelet Estimate Decreased
[2020-04-29] MEDS: INSULIN LISPRO 100 UNIT/ML SUBCUT SCH ×4 (08:46→21:38)
[2020-04-29] MEDS: LEVOTHYROXINE 100 MCG TABLET PO SCH (09:10)
[2020-04-29] MEDS: LACTOBACILLUS RHAMNOSUS GG CAPSULE PO SCH ×2 (09:10→17:28)
[2020-04-29] MEDS: COLLAGENASE OINT 30 GM TUBE TOP SCH ×2 (09:11→20:26)
[2020-04-29] MEDS: MIDODRINE 5 MG TABLET PO SCH ×2 (09:11→20:24)
[2020-04-29] MEDS: MENTHOL/ZINC OXIDE OINT 71 GM JAR TOP SCH ×2 (09:11→20:25)
[2020-04-29] MEDS: FERROUS SULFATE 300 MG/5 ML UDCUP PO SCH ×3 (09:11→17:28)
[2020-04-29] MEDS: PANTOPRAZOLE 40 MG TABLET PO SCH ×2 (09:11→20:24)
[2020-04-29] MEDS: CALCIUM (CARBONATE)/VITAMIN D 600 MG-400 UNIT TABLET PO SCH (09:11)
[2020-04-29] MEDS: NYSTATIN OINT 15 GM TUBE TOP SCH ×2 (09:11→20:25)
[2020-04-29] MEDS: ACETAMINOPHEN 325 MG TABLET PO PRN ×2 (09:53→17:28)
[2020-04-29] MEDS ORDERED: fentaNYL 100 MCG/2 ML VIAL ONE (14:04)
[2020-04-29] MEDS: CITALOPRAM 20 MG TABLET PO SCH (20:24)
[2020-04-30 06:08] LABS: Basophils % 0.9 % (0.0-0.8); Eosinophils # 0.1 10*3/uL (0.0-0.87); Eosinophils % 4.1 % (0.00-10.9); Hematocrit 27.9 VOL% (42.0-52.0); Hemoglobin 8.7 GM/DL (14.0-18.0); Immature Granulocytes % 1.2 %; Immature Granulocytes Absolute 0.04 #; Lymphocytes # 0.6 10*3/uL (1.4-4.0); Lymphocytes % 18.9 % (21.2-54.2); Mean Corpuscular HGB Conc 31.2 GM/DL (32-36); Mean Corpuscular Volume 94.9 FL (87-102); Mean Platelet Volume 9.5 FL (9.6-12.0); Monocytes % 13.6 % (1.7-12.7); Neutrophils % 61.3 % (38.7-73.9); Red Blood Count 2.94 MC/CUMM (3.8-5.5); Red Cell Distribution Width 17.7 % (9.3-17.3); White Blood Count 3.4 T/CUMM (4-12)
[2020-04-30 06:10] LABS: Platelet Count 91 T/CUMM (130-400)
[2020-04-30 06:15] LABS: Calcium 7.9 MG/DL (8.5-10.1)
[2020-04-30 07:09] LABS: Hypochromasia 1+; Microcytosis 1+; Ovalocytes Slight; Platelet Estimate Decreased
[2020-04-30] MEDS: FERROUS SULFATE 300 MG/5 ML UDCUP PO SCH ×2 (07:23→11:41)
[2020-04-30] MEDS: LACTOBACILLUS RHAMNOSUS GG CAPSULE PO SCH (07:23)
[2020-04-30] MEDS: ACETAMINOPHEN 325 MG TABLET PO PRN (07:23)
[2020-04-30] MEDS: LEVOTHYROXINE 100 MCG TABLET PO SCH (07:25)
[2020-04-30 08:12] VITALS: BP 94/55
[2020-04-30] MEDS: INSULIN LISPRO 100 UNIT/ML SUBCUT SCH ×2 (08:12→11:41)
[2020-04-30] MEDS ORDERED: FAMOTIDINE 20 MG TABLET PO SCH (09:00)
[2020-04-30] MEDS: COLLAGENASE OINT 30 GM TUBE TOP SCH (10:01)
[2020-04-30] MEDS: NYSTATIN OINT 15 GM TUBE TOP SCH (10:01)
[2020-04-30] MEDS: MENTHOL/ZINC OXIDE OINT 71 GM JAR TOP SCH (10:01)
[2020-04-30] MEDS: MIDODRINE 5 MG TABLET PO SCH (11:11)
[2020-04-30] MEDS: CALCIUM (CARBONATE)/VITAMIN D 600 MG-400 UNIT TABLET PO SCH (11:11)
[2020-04-30] MEDS: PANTOPRAZOLE 40 MG TABLET PO SCH (11:23)
[2020-04-30] MEDS ORDERED: VANCOMYCIN INJ 1,000 MG in SODIUM CHLORIDE 0.9% 250 ML IV PRN (17:00)
== END 2020-04-30 15:06 | DRG 673 ==
LOC: EDBD → EDUNIT# → N.ED 16:15 → N.EDINP 16:15 → N.TELES 23:16
PROVIDERS: ADMIT Internal Medicine; ATTEND Internal Medicine